=== PATIENT | female | born 1950 | race Caucasian/White ===

== ENCOUNTER 2017-05-22 13:08 | Inpatient (IN) | payer MEDICARE ==
[2017-05-22] MEDS ORDERED: IPRATROPIUM/ALBUTEROL 0.5-2.5 MG/3 ML AMPUL NEB ONE (14:41)
[2017-05-22] MEDS ORDERED: NORMAL SALINE 1000 ML 1,000 ML IV ONE (14:43)
[2017-05-22 15:41] LABS: HEMATOCRIT 46.7 % (36.0-47.0); HEMOGLOBIN 15.6 g/dL (12.0-15.5); MEAN CORPUSCULAR HEMOGLOBIN 30.3 pg (27.0-33.4); MEAN CORPUSCULAR HGB CONC 33.3 g/dL (32.0-36.0); MEAN CORPUSCULAR VOLUME 91 fl (80-97); PLATELET COUNT 192 10^3/uL (150-450); RED BLOOD COUNT 5.13 10^6/uL (3.72-5.28); RED CELL DISTRIBUTION WIDTH 14.6 % (11.5-14.0); WHITE BLOOD COUNT 11.9 10^3/uL (4.0-10.5)
[2017-05-22 15:59] LABS: ABSOLUTE LYMPHOCYTES# (MANUAL) 0.6 10^3/uL (0.5-4.7); ABSOLUTE MONOCYTES # (MANUAL) 0.5 10^3/uL (0.1-1.4); ABSOLUTE NEUTROPHILS# (MANUAL) 10.8 10^3/uL (1.7-8.2); BAND NEUTROPHILS % (MANUAL) 1 % (3-5); BASOPHILS % (MANUAL) 0 % (0-2); EOSINOPHILS % (MANUAL) 0 % (0-6); LYMPHOCYTES % (MANUAL) 5 % (13-45); MONOCYTES % (MANUAL) 4 % (3-13); SEGMENTED NEUTROPHILS % (MAN) 90 % (42-78); TOTAL CELLS COUNTED 100
[2017-05-22 16:02] LABS: ALANINE AMINOTRANSFERASE 20 U/L (9-52); ALBUMIN 4.5 g/dL (3.5-5.0); ALKALINE PHOSPHATASE 104 U/L (38-126); ANION GAP 10 (5-19); ASPARTATE AMINO TRANSFERASE 20 U/L (14-36); BILIRUBIN,DIRECT 0.5 mg/dL (0.0-0.4); BILIRUBIN,TOTAL 0.6 mg/dL (0.2-1.3); BLOOD UREA NITROGEN 5 mg/dL (7-20); CALCIUM 9.6 mg/dL (8.4-10.2); CARBON DIOXIDE 34 mmol/L (22-30); CHLORIDE 98 mmol/L (98-107); GLUCOSE 128 mg/dL (75-110); POTASSIUM 3.9 mmol/L (3.6-5.0); SODIUM 142.3 mmol/L (137-145); TOTAL PROTEIN 8.2 g/dL (6.3-8.2)
[2017-05-22 16:10] LABS: ANISOCYTOSIS SLIGHT; OVALOCYTES SLIGHT; PLATELET COMMENT ADEQUATE; POIKILOCYTOSIS SLIGHT
--- NOTE | 2017-05-22 16:20 | RADIOLOGY REPORT (SQ) ---
EXAM DESCRIPTION: CHEST PA/LAT COMPLETED DATE/TIME: 05/22/2017 4:02 pm REASON FOR STUDY: cough/sob COMPARISON: 12/16/2013 EXAM PARAMETERS: NUMBER OF VIEWS: two views TECHNIQUE: Digital Frontal and Lateral radiographic views of the chest acquired. RADIATION DOSE: NA LIMITATIONS: none FINDINGS: LUNGS AND PLEURA: No opacities, masses or pneumothorax. No pleural effusion. MEDIASTINUM AND HILAR STRUCTURES: No masses or contour abnormalities. HEART AND VASCULAR STRUCTURES: Heart normal size. No evidence for failure. BONES: No acute findings. Osteopenia. Moderate thoracic spondylosis. HARDWARE: None in the chest. OTHER: Mild chronic elevation left hemidiaphragm. IMPRESSION: NO ACUTE RADIOGRAPHIC FINDING IN THE CHEST. TECHNICAL DOCUMENTATION: JOB ID: [id number] [employer]- All Rights Reserved
[2017-05-22 17:05] LABS: A TYPE INFLUENZA AG NEGATIVE (NEGATIVE); B INFLUENZA AG NEGATIVE (NEGATIVE)
--- NOTE | 2017-05-22 18:49 | ER Document Report ---
ED General - General Mode of Arrival: Ambulatory Information source: Patient TRAVEL OUTSIDE OF THE [place] IN LAST 30 DAYS: No <JEREMIAH TAPIA - Last Filed: 05/23/17 00:18> <DOMO TIAN - Last Filed: 05/23/17 03:46> - General Chief Complaint: Flu Symptoms Stated Complaint: BREATING DIFFICULTY Time Seen by Provider: 05/22/17 14:40 Notes: Patient is a 67 year old female presenting to the emergency department complaining of flu like symptoms onset 3 days ago. Patients associated symptoms include nausea, vomiting, fatigue and a productive cough. Patient denies any diarrhea or chest pain. Patient states she has been around her granddaughter who was recently diagnosed with the flu. (JEREMIAH TAPIA) - Related Data Allergies/Adverse Reactions: Sulfa (Sulfonamide Antibiotics) Allergy (Verified 05/22/17 13:15) Itching Past Medical History - General Information source: Patient - Social History Smoking Status: Current Every Day Smoker Cigarette use (# per day): Yes Chew tobacco use (# tins/day): No Smoking Education Provided: No Family History: Reviewed & Not Pertinent Patient has suicidal ideation: No Patient has homicidal ideation: No - Past Medical History Cardiac Medical History: Reports: Hx Hypercholesterolemia, Hx Hypertension Pulmonary Medical History: Reports: Hx Bronchitis GI Medical History: Reports: Hx Gastroesophageal Reflux Disease Musculoskeltal Medical History: Reports Hx Arthritis, Reports Hx Fibromyalgia - 5 the Psychiatric Medical History: Reports: Hx Anxiety, Hx Depression Past Surgical History: Reports: Hx Hysterectomy - Immunizations Hx Diphtheria, Pertussis, Tetanus Vaccination: Yes <JEREMIAH TAPIA - Last Filed: 05/23/17 00:18> Review of Systems - Review of Systems Constitutional: See HPI - fatigue EENT: No symptoms reported Cardiovascular: See HPI, Chest pain - when she coughs Respiratory: See HPI, Cough Gastrointestinal: See HPI, Nausea, Vomiting Female Genitourinary: No symptoms reported Musculoskeletal: No symptoms reported Skin: No symptoms reported Hematologic/Lymphatic: No symptoms reported Neurological/Psychological: No symptoms reported -: Yes All other systems reviewed and negative <JEREMIAH TAPIA - Last Filed: 05/23/17 00:18> Physical Exam <JEREMIAH TAPIA - Last Filed: 05/23/17 00:18> <LONG,DOMO H - Last Filed: 05/23/17 03:46> - Vital signs Vitals: Temp Pulse Resp BP Pulse Ox 98.7 F 123 H 24 H 167/89 H 88 L 05/22/17 13:29 05/22/17 13:29 05/22/17 13:29 05/22/17 13:29 05/22/17 13:29 - Notes Notes: GENERAL: Alert, interacts well. No acute distress. HEAD: Normocephalic, atraumatic. EYES: Pupils equal, round, and reactive to light. Extraocular movements intact. ENT: Oral mucosa moist, tongue midline. NECK: Full range of motion. Supple. Trachea midline. LUNGS: Crackles at left lung base. No respiratory distress. HEART: Regular rate and rhythm. No murmurs, gallops, or rubs. EXTREMITIES: Moves all 4 extremities spontaneously. NEUROLOGICAL: Alert and oriented x3. Normal speech. PSYCH: Normal affect, normal mood. SKIN: Warm, dry, normal turgor. No rashes or lesions noted. (JEREMIAH TAPIA) Course - Laboratory Result Diagrams: 05/22/17 15:20 05/22/17 15:20 <JEREMIAH TAPIA - Last Filed: 05/23/17 00:18> - Laboratory Result Diagrams: 05/22/17 15:20 05/22/17 15:20 - Diagnostic Test Radiology reviewed: Image reviewed - EKG Interpretation by Ct EKG shows normal: Sinus rhythm Rate: Tachycardia Rhythm: NSR When compared to previous EKG there are: No significant change <DOMO TIAN - Last Filed: 05/23/17 03:46> - Re-evaluation Re-evalutation: 05/22/17 19:10 Patient well-appearing on exam with chest x-ray showing no effusions or consolidations. Labs within normal limits are nonsignificant. Patient is a smoker and had some mild crackles in left lung base. Will provide hour-long DuoNeb nebulizer and reevaluate. Due to crackles will provide 5 days of Levaquin and discharge after nebulizer treatment EKG no significant changes from previous. Influenza negative. Will also provide Zofran for nausea and Advil Cold and Sinus for aches and pains. She will be provided return precautions 05/22/17 20:22 Patient found to have magnesium 1.1 will provide 2 g. Patient is taking Nexium I discussed with her need to be weaned off and discuss with her primary care physician recommended Zantac. QTC within normal limits. Patient responding well to albuterol treatment. Will provide 5 days of Levaquin steroids and albuterol puffer. Return precautions provided (DOMO TIAN) - Vital Signs Vital signs: Temp Pulse Resp BP Pulse Ox 101.9 F H 102 H 20 139/58 H 92 05/23/17 01:33 05/23/17 02:24 05/23/17 02:24 05/23/17 01:33 05/23/17 02:24 - Laboratory Laboratory results interpreted by me: 05/22/17 05/22/17 05/22/17 15:20 15:20 15:20 WBC 11.9 H Hgb 15.6 H RDW 14.6 H Seg Neuts % (Manual) 90 H Band Neutrophils % 1 L Lymphocytes % (Manual) 5 L Abs Neuts (Manual) 10.8 H Carbon Dioxide 34 H BUN 5 L Glucose 128 H Magnesium 1.1 L* Direct Bilirubin 0.5 H Discharge - Discharge Admitting Provider: Hospitalist - Law <JEREMIAH TAPIA - Last Filed: 05/23/17 00:18> <DOMO TIAN - Last Filed: 05/23/17 03:46> - Discharge Clinical Impression: Upper respiratory infection Qualifiers: URI type: unspecified URI Qualified Code(s): J06.9 - Acute upper respiratory infection, unspecified Condition: Stable Disposition: ADMITTED INPATIENT Scribe Attestation: 05/23/17 03:46 I personally performed the services described documentation, reviewed and edited the documentation which was dictated to describe my presence, and it accurately records my words and actions. (DOMO TIAN) Scribe Documentation - Scribe Written by Vicki:: Vicki Estrella, 05/22/2017 18:49 acting as scribe for :: Vincent <JEREMIAH TAPIA - Last Filed: 05/23/17 00:18>
[2017-05-22] MEDS ORDERED: KETOROLAC TROMETHAMINE INJ/PF 30 MG/1 ML SDV IV ONE (18:50)
[2017-05-22] MEDS ORDERED: ALBUTEROL SULFATE 0.083% NEB 2.5 MG/3 ML AMPUL NEB ONE (19:09)
[2017-05-22] MEDS ORDERED: IPRATROPIUM BROMIDE 0.02% NEB 0.5 MG/2.5 ML AMPUL NEB ONE (19:09)
[2017-05-22 19:13] LABS: NT PRO BNP 377 pg/mL (5-900)
[2017-05-22 19:14] LABS: TROPONIN I < 0.012 ng/mL
[2017-05-22] MEDS ORDERED: ALBUTEROL SULFATE HFA (90 MCG/PUFF) 200 PUFF/8.5 GM MDI IH ONE (20:26)
[2017-05-22] MEDS: MAGNESIUM SULFATE/D5W 1 GM/100 ML RTUPB IV SCH ×2 (20:28→21:55)
[2017-05-22] MEDS ORDERED: MAGNESIUM SULFATE/D5W 1 GM/100 ML RTUPB IV SCH (23:45)
[2017-05-23] MEDS ORDERED: ACETAMINOPHEN 325 MG TABLET PO PRN (00:27)
[2017-05-23] MEDS ORDERED: NICOTINE 21 MG/24 HR PATCH.TD24 TD ONE (01:30)
[2017-05-23] MEDS ORDERED: INFLUENZA ADLT QUAD (36MOS+) 2017-18 VAC 0.5 ML SYR IM PRN (01:50)
[2017-05-23] MEDS: IPRATROPIUM/ALBUTEROL 0.5-2.5 MG/3 ML AMPUL NEB PRN ×2 (02:25→21:06)
--- NOTE | 2017-05-23 03:43 | PDOC H&P ---
History of Present Illness Patient complains of: Intermittent fever and worsening shortness of breath for the last 2 days. History of Present Illness: LULA HOLLAND is a 67 year old female smoker with history of acute bronchitis, hypertension and most likely COPD (although undiagnosed) was admitted with above -mentioned complaints. The patient is sleepy but arousable. she is complaining of pleuritic chest pain and productive cough but unable to bring up the phlegm. She also has been having intermittent fevers and chills. Her granddaughter apparently was diagnosed with flu (although she never tested positive per patient). She said that she used her nebulizer twice yesterday with no improvement in her symptoms so she decided to come to the hospital for further management and treatment. She denied any abdominal pain, nausea vomiting, diarrhea, constipation or any urinary symptoms. She complained of generalized weakness. In the ED, her temperature was 98.7, heart rate 123, respiratory 24, blood pressure 167/89 with oxygen saturation of 88% on room air. Her WBC was 11.9 and her hemoglobin was 15.6. Her initial troponin was negative and her proBNP was 377. Her magnesium was 1.1. A chest x-ray was done which was essentially unremarkable for any acute findings. She received 10 mg of albuterol neb x1, 0.5 mg Atrovent 1, DuoNeb 1 with no significant improvement in her breathing. Past Medical History Cardiac Medical History: Reports: Hyperlipidema, Hypertension Denies: Myocardial Infarction Pulmonary Medical History: Reports: Bronchitis Denies: Asthma, Pneumonia Neurological Medical History: Denies: Seizures GI Medical History: Reports: Gastroesophageal Reflux Disease Musculoskeltal Medical History: Reports: Arthritis, Fibromyalgia - 5 the Psychiatric Medical History: Reports: Depression Hematology: Denies: Anemia Past Surgical History Past Surgical History: Reports: Hysterectomy, Tonsillectomy Social History Smoking Status: Current Every Day Smoker Cigarettes Packs Per Day: 1.5 - For more than 20 Frequency of Alcohol Use: None Family History Parental Family History Reviewed: Yes - Father: CAD, mother: CAD/DM2 Children Family History Reviewed: No Sibling(s) Family History Reviewed.: Yes Medication/Allergy Home Medications: Alprazolam [Xanax] 1 mg PO QHS 05/21/13 Potassium Chloride [Klor-Con] 20 meq PO BID 05/21/13 Pravastatin Sodium [Pravachol] 80 mg PO QHS 05/21/13 Propranolol HCl [Inderal 20 mg Tablet] 20 mg PO BID 05/21/13 Ranitidine HCl [Zantac 150 mg Tablet] 150 mg PO DAILY 05/21/13 Benzonatate [Tessalon Perles 100 mg Capsule] 100 mg PO Q8HP PRN #40 capsule Albuterol Sulfate [Proair HFA Inhalation Aerosol 8.5 gm MDI] 2 puff IH PRN PRN 01/11/17 Fluticasone Propionate [Flonase Nasal Clyde 50 Mcg/Clyde 16 gm] 2 spray NASL PRN PRN 01/11/17 Levofloxacin [Levaquin 750 mg Tablet] 750 mg PO DAILY #5 tablet 05/22/17 Prednisone [Deltasone 20 mg Tablet] 2 tab PO DAILY 5 Days #10 tablet 05/22/17 Allergies/Adverse Reactions: Sulfa (Sulfonamide Antibiotics) Allergy (Verified 05/22/17 13:15) Itching Review of Systems Constitutional: PRESENT: as per HPI Eyes: PRESENT: as per HPI Ears: PRESENT: as per HPI Nose, Mouth, and Throat: PRESENT: as per HPI Cardiovascular: PRESENT: as per HPI Respiratory: PRESENT: as per HPI Gastrointestinal: PRESENT: as per HPI Genitourinary: PRESENT: as per HPI Musculoskeletal: PRESENT: as per HPI Integumentary: PRESENT: as per HPI Neurological: PRESENT: as per HPI Psychiatric: PRESENT: as per HPI Endocrine: PRESENT: as per HPI Hematologic/Lymphatic: PRESENT: as per HPI Physical Exam Vital Signs: Temp Pulse Resp BP Pulse Ox 98.7 F 123 H 22 H 132/63 H 92 05/22/17 13:29 05/22/17 13:29 05/22/17 22:51 05/22/17 22:01 05/22/17 22:51 Intake & Output 05/21/17 05/22/17 05/23/17 06:59 06:59 06:59 Weight 72.8 kg General appearance: PRESENT: no acute distress - on 2L nasal cannula, well- developed Head exam: PRESENT: atraumatic, normocephalic Eye exam: PRESENT: conjunctiva pink, PERRLA Mouth exam: PRESENT: moist Neck exam: PRESENT: carotid bruit. ABSENT: JVD Respiratory exam: PRESENT: decreased breath sounds, wheezes. ABSENT: rales, rhonchi Cardiovascular exam: PRESENT: tachycardia. ABSENT: diastolic murmur, systolic murmur GI/Abdominal exam: PRESENT: normal bowel sounds, soft. ABSENT: distended, rebound, tenderness Rectal exam: PRESENT: deferred Extremities exam: PRESENT: full ROM. ABSENT: pedal edema Neurological exam: PRESENT: motor sensory deficit, other - Sleepy but arousable Skin exam: PRESENT: dry, intact, warm. ABSENT: cyanosis, rash Results Laboratory Results: 05/22/17 15:20 05/22/17 15:20 05/22/17 05/22/17 05/22/17 15:20 15:20 15:20 WBC 11.9 H RBC 5.13 Hgb 15.6 H Hct 46.7 MCV 91 MCH 30.3 MCHC 33.3 RDW 14.6 H Plt Count 192 Seg Neutrophils % Not Reportable Lymphocytes % Not Reportable Monocytes % Not Reportable Eosinophils % Not Reportable Basophils % Not Reportable Absolute Neutrophils Not Reportable Absolute Lymphocytes Not Reportable Absolute Monocytes Not Reportable Absolute Eosinophils Not Reportable Absolute Basophils Not Reportable Sodium 142.3 Potassium 3.9 Chloride 98 Carbon Dioxide 34 H Anion Gap 10 BUN 5 L Creatinine 0.70 Est GFR ( Amer) > 60 Est GFR (Non-Af Amer) > 60 Glucose 128 H Calcium 9.6 Magnesium 1.1 L* Total Bilirubin 0.6 AST 20 ALT 20 Alkaline Phosphatase 104 Total Protein 8.2 Albumin 4.5 05/22/17 15:20 Troponin I < 0.012 NT-Pro-B Natriuret Pep 377 EKG Comments: Lead EKG, sinus rhythm, ventricular rate 105, axis +100, no acute changes. When compared to previous 12-lead EKG done on 12/16/2013 except ventricular rate was 90. Impressions: Chest X-Ray 05/22/17 14:41 IMPRESSION: NO ACUTE RADIOGRAPHIC FINDING IN THE CHEST. Assessment & Plan - Diagnosis (1) Acute and chronic respiratory failure with hypoxia Is this a current diagnosis for this admission?: Yes Plan: Given tachypnea and tachycardia with oxygen saturation down to 88% requiring 2 L of oxygen via nasal cannula. It could be due to acute bronchitis and/or COPD exacerbation. Chest x-ray was reviewed. We will continue scheduled duo nebs, IV Solu-Medrol and Levaquin. She mentioned that her granddaughter had the flu but she also said that she was never tested. Since she had these symptoms over 48 hours, I'm not sure if tamiflu is of benefit at this time. The patient would benefit from being referred to pulmonary for PFTs to be done once back to baseline (3) Sinus tachycardia Is this a current diagnosis for this admission?: Yes Plan: Secondary to #1. We will try to treat the underlying cause. Will restart her propranolol. (4) Hypomagnesemia Is this a current diagnosis for this admission?: Yes Plan: She received 2 g magnesium sulfate in the ED. We will repeat magnesium level in a.m and replace as needed. (5) Smoker Is this a current diagnosis for this admission?: Yes Plan: 1-1/2 pack a day for more than 20 years. She seems to be motivated to quit. She agreed to have a nicotine patch. - Time Time Spent: Greater than 70 Minutes Smoking Cessation Education: 3 to 10 minutes Anticipated discharge: Home - Inpatient Certification Based on my medical assessment, after consideration of the patient's comorbidities, presenting symptoms, or acuity I expect that the services needed warrant INPATIENT care.: Yes I certify that my determination is in accordance with my understanding of Medicare's requirements for reasonable and necessary INPATIENT services [42 CFR 412.3e].: Yes
[2017-05-23] MEDS: METHYLPREDNISOLONE INJ 40 MG/1 ML SDV IV SCH ×3 (05:39→22:01)
[2017-05-23] MEDS: HEPARIN SOD (PORCINE) 5,000 UNIT/ML 1 ML SYRINGE SUBCUT SCH ×3 (05:45→22:01)
[2017-05-23 06:11] LABS: HEMATOCRIT 38.4 % (36.0-47.0); MEAN CORPUSCULAR HEMOGLOBIN 30.8 pg (27.0-33.4); MEAN CORPUSCULAR VOLUME 91 fl (80-97); PLATELET COUNT 123 10^3/uL (150-450); RED BLOOD COUNT 4.23 10^6/uL (3.72-5.28); RED CELL DISTRIBUTION WIDTH 14.4 % (11.5-14.0); WHITE BLOOD COUNT 6.2 10^3/uL (4.0-10.5)
[2017-05-23 06:19] LABS: HEMOGLOBIN 13.1 g/dL (12.0-15.5)
[2017-05-23 06:30] LABS: ANION GAP 11 (5-19); BLOOD UREA NITROGEN 6 mg/dL (7-20); CALCIUM 8.8 mg/dL (8.4-10.2); CARBON DIOXIDE 29 mmol/L (22-30); CHLORIDE 100 mmol/L (98-107); GLUCOSE 97 mg/dL (75-110); POTASSIUM 3.2 mmol/L (3.6-5.0); SODIUM 140.1 mmol/L (137-145)
--- NOTE | 2017-05-23 07:57 | EKG REPORT ---
SEVERITY:- BORDERLINE ECG - SINUS TACHYCARDIA RIGHT AXIS DEVIATION DIFFUSE NONSPECIFIC ST CHANGES : Confirmed by: Scott Glass MD 23-May-2017 07:56:53
[2017-05-23] MEDS ORDERED: ALBUTEROL SULFATE 0.042% NEB (1.25 MG/3 ML) AMPUL NEB PRN (09:08)
--- NOTE | 2017-05-23 09:08 | PDOC PROGRESS REPORT ---
Subjective Progress Note for:: 05/23/17 Subjective:: 67-year-old female smoker with hypertension presented to the hospital with intermittent fever and worsening shortness of breath for 2 days. Her shortness of breath was associated with pleuritic chest pain and a productive cough. In the emergency department, her temperature was 98.7, heart rate 123, respiratory rate 24, and blood pressure 167/89. Her O2 saturation was 88% on room air. Her breath sounds were diminished, and she was wheezing on exam. Her chest x- ray showed no acute abnormalities. She was treated with albuterol neb x 1, Atrovent neb x 1, and DuoNeb once with no significant improvement in her breathing. She was admitted by the hospitalist. Oxygen was continued. She was continued on duo nebs every 6 hours. She was also started on methylprednisolone 40 mg IV every 8 hours. Empiric levofloxacin was also started. She is encouraged to quit smoking. Nicotine patch was ordered. May 23 She is feeling better this morning. She has less cough and shortness of breath. Reason For Visit: SHORTNESS OF BREATH Physical Exam Vital Signs: Temp Pulse Resp BP Pulse Ox 98.3 F 79 20 118/55 L 90 L 05/23/17 08:00 05/23/17 08:00 05/23/17 08:00 05/23/17 08:00 05/23/17 08:00 Intake & Output 05/22/17 05/23/17 05/24/17 06:59 06:59 06:59 Intake Total 227 Output Total 540 Balance -313 Weight 72.8 kg General appearance: PRESENT: no acute distress, well-developed, well-nourished Head exam: PRESENT: atraumatic, normocephalic Respiratory exam: PRESENT: decreased breath sounds, prolonged expiratory phas, unlabored, wheezes. ABSENT: accessory muscle use, tachypnea Cardiovascular exam: PRESENT: RRR. ABSENT: diastolic murmur, rubs, systolic murmur Neurological exam: PRESENT: alert, awake, oriented to person, oriented to place , oriented to time, oriented to situation, CN II-XII grossly intact. ABSENT: motor sensory deficit Psychiatric exam: PRESENT: appropriate affect, normal mood. ABSENT: homicidal ideation, suicidal ideation Skin exam: PRESENT: dry, intact, warm. ABSENT: cyanosis, rash Results Laboratory Results: 05/23/17 05:38 05/23/17 05:38 05/23/17 05/23/17 05:38 05:38 WBC 6.2 RBC 4.23 Hgb 13.1 D Hct 38.4 MCV 91 MCH 30.8 MCHC 34.0 RDW 14.4 H Plt Count 123 L Sodium 140.1 Potassium 3.2 L Chloride 100 Carbon Dioxide 29 Anion Gap 11 BUN 6 L Creatinine 0.60 Est GFR ( Amer) > 60 Est GFR (Non-Af Amer) > 60 Glucose 97 Calcium 8.8 Magnesium 1.8 Impressions: Chest X-Ray 05/22/17 14:41 IMPRESSION: NO ACUTE RADIOGRAPHIC FINDING IN THE CHEST. Assessment & Plan - Diagnosis (1) Acute bronchitis Qualifiers: Bronchitis organism: unspecified organism Qualified Code(s): J20.9 - Acute bronchitis, unspecified Is this a current diagnosis for this admission?: Yes Plan: She most likely has COPD based on her symptoms as well as history of smoking. She would benefit from pulmonary function studies prior to discharge or as an outpatient if she, discharges over the weekend. (2) Hypertension Qualifiers: Hypertension type: essential hypertension Qualified Code(s): I10 - Essential (primary) hypertension Is this a current diagnosis for this admission?: Yes Plan: Blood pressures well controlled. (3) Smoker Is this a current diagnosis for this admission?: Yes Plan: She was encouraged to quit smoking. Nicotine patch has been ordered. (4) Hypokalemia Is this a current diagnosis for this admission?: Yes Plan: Replace as needed. Also supplement magnesium as well. - Time Time Spent with patient: 25-34 minutes Medications reviewed and adjusted accordingly: Yes Anticipated discharge: Home - Inpatient Certification Based on my medical assessment, after consideration of the patient's comorbidities, presenting symptoms, or acuity I expect that the services needed warrant INPATIENT care.: Yes I certify that my determination is in accordance with my understanding of Medicare's requirements for reasonable and necessary INPATIENT services [42 CFR 412.3e].: Yes Medical Necessity: Failure to Improve With Outpatient Therapy, Significant Comorbidiites Make Outpatient Treatment Too Risky, Need for Nebulizer Therapy and Monitoring of Response
[2017-05-23] MEDS: PROPRANOLOL HCL 20 MG TABLET PO SCH ×2 (09:58→17:51)
[2017-05-23] MEDS: LEVOFLOXACIN 500 MG TABLET PO SCH (09:59)
[2017-05-23] MEDS: NICOTINE 21 MG/24 HR PATCH.TD24 TD SCH (09:59)
[2017-05-23] MEDS: MAGNESIUM OXIDE 400 MG TABLET PO SCH ×2 (10:24→17:51)
[2017-05-23] MEDS: POTASSIUM CHLORIDE 10 MEQ TABLET.SA PO SCH ×3 (10:24→17:51)
[2017-05-24] MEDS: LOPERAMIDE HCL 2 MG CAPSULE PO PRN ×2 (03:33→15:59)
[2017-05-24] MEDS: METHYLPREDNISOLONE INJ 40 MG/1 ML SDV IV SCH (05:24)
[2017-05-24] MEDS: HEPARIN SOD (PORCINE) 5,000 UNIT/ML 1 ML SYRINGE SUBCUT SCH ×3 (05:24→22:29)
[2017-05-24 06:31] LABS: ANION GAP 8 (5-19); BLOOD UREA NITROGEN 10 mg/dL (7-20); CARBON DIOXIDE 31 mmol/L (22-30); CHLORIDE 99 mmol/L (98-107); GLUCOSE 184 mg/dL (75-110); SODIUM 138.2 mmol/L (137-145)
[2017-05-24] MEDS: NICOTINE 21 MG/24 HR PATCH.TD24 TD SCH (10:29)
[2017-05-24] MEDS: MAGNESIUM OXIDE 400 MG TABLET PO SCH ×2 (10:32→17:27)
[2017-05-24] MEDS: LEVOFLOXACIN 500 MG TABLET PO SCH (10:32)
[2017-05-24] MEDS: PROPRANOLOL HCL 20 MG TABLET PO SCH ×2 (10:32→17:27)
[2017-05-24] MEDS: IPRATROPIUM/ALBUTEROL 0.5-2.5 MG/3 ML AMPUL NEB PRN ×2 (10:52→16:10)
--- NOTE | 2017-05-24 11:47 | PDOC PROGRESS REPORT ---
Subjective Progress Note for:: 05/24/17 Subjective:: The patient is a 67-year-old female who is a long history of tobacco abuse. Her only known medical problem is hypertension. She told me that she generally gets severe bronchitis this time of year. She frequently has bronchitis but again has never been told that she has asthma, chronic bronchitis, COPD or emphysema. She has never had pulmonary function testing done. She presented to the hospital with a saturation of 88% on room air. She was tachycardic. She has a normal-appearing chest x-ray. She is currently receiving antibiotics , steroids and bronchodilators and is improving. Pulmonary function testing has been scheduled for today. Reason For Visit: SHORTNESS OF BREATH Physical Exam Vital Signs: Temp Pulse Resp BP Pulse Ox 98.2 F 65 20 121/59 L 90 L 05/24/17 08:00 05/24/17 08:00 05/24/17 08:00 05/24/17 08:00 05/24/17 08:00 Intake & Output 05/23/17 05/24/17 05/25/17 06:59 06:59 06:59 Intake Total 227 2646 Output Total 540 Balance -313 2646 Weight 72.8 kg 78.2 kg Additional comments: The patient appears to be her stated age. She is extremely polite. Her cognition is normal. Her facial appearance is unremarkable. Her lungs were clear anteriorly, but, she had a few scattered wheezes in the posterior lung field primarily throughout the right lung. Her cardiac exam is regular without murmurs, gallops or rubs. The abdomen is soft and flat. Bowel sounds are present. She does not have any guarding or rebound noted and there are no hernias or masses present. The lower extremities are warm to touch without edema. The skin is warm, dry and intact without lesions or rashes. Results Laboratory Results: 05/23/17 05:38 05/24/17 05:55 05/24/17 05:55 Sodium 138.2 Potassium 5.0 Chloride 99 Carbon Dioxide 31 H Anion Gap 8 BUN 10 Creatinine 0.57 Est GFR ( Amer) > 60 Est GFR (Non-Af Amer) > 60 Glucose 184 H Calcium 10.0 Impressions: Chest X-Ray 05/22/17 14:41 IMPRESSION: NO ACUTE RADIOGRAPHIC FINDING IN THE CHEST. Assessment & Plan - Diagnosis (1) Acute respiratory failure with hypoxia Is this a current diagnosis for this admission?: Yes Plan: Continue supplemental oxygen. The patient states that for a long time she has been feeling poorly. She has decreased physical strength and stamina. I suspect that the patient likely needs oxygen. She may need to be evaluated for chronic oxygen use before discharge. (2) Acute bronchitis Qualifiers: Bronchitis organism: unspecified organism Qualified Code(s): J20.9 - Acute bronchitis, unspecified Is this a current diagnosis for this admission?: Yes Plan: Continue antibiotics, steroids and bronchodilators. (3) Hypertension Qualifiers: Hypertension type: essential hypertension Qualified Code(s): I10 - Essential (primary) hypertension Is this a current diagnosis for this admission?: Yes Plan: Continue home regimen. (4) Smoker Is this a current diagnosis for this admission?: Yes Plan: Continue nicotine patch. Patient was counseled that the best way to quit smoking is to use a pharmacological adjunct plus a smoking cessation program. - Time Time Spent with patient: 25-34 minutes - Inpatient Certification Medical Necessity: Need Close Monitoring Due to Risk of Patient Decompensation, Need for IV Antibiotics, Risk of Complication if Not Cared For in Hospital, Risk of Diagnosis Which Will Require Inpatient Eval/Care/Monitoring
[2017-05-24] MEDS ORDERED: (PENDING PHARMACY ID) (Dextroamphetamine/Amphetamine [Adderall 20 Mg Tablet] 1 TAB) PO PRN (11:50)
[2017-05-24] MEDS: ALPRAZOLAM 0.5 MG TABLET PO SCH ×2 (15:59→22:29)
[2017-05-24] MEDS: PREDNISONE 20 MG TABLET PO SCH (17:27)
[2017-05-24] MEDS ORDERED: PROPRANOLOL HCL 20 MG TABLET PO SCH (22:00)
[2017-05-24] MEDS: ATORVASTATIN CALCIUM 20 MG TABLET PO SCH (22:29)
[2017-05-25] MEDS: ALPRAZOLAM 0.5 MG TABLET PO SCH ×3 (05:37→21:38)
[2017-05-25] MEDS: HEPARIN SOD (PORCINE) 5,000 UNIT/ML 1 ML SYRINGE SUBCUT SCH ×3 (05:37→21:36)
[2017-05-25 07:38] LABS: ANION GAP 7 (5-19); BLOOD UREA NITROGEN 13 mg/dL (7-20); CALCIUM 9.8 mg/dL (8.4-10.2); CARBON DIOXIDE 33 mmol/L (22-30); CHLORIDE 97 mmol/L (98-107); GLUCOSE 126 mg/dL (75-110); POTASSIUM 4.4 mmol/L (3.6-5.0); SODIUM 137.4 mmol/L (137-145)
[2017-05-25] MEDS: PROPRANOLOL HCL 20 MG TABLET PO SCH ×2 (09:42→17:52)
[2017-05-25] MEDS: MAGNESIUM OXIDE 400 MG TABLET PO SCH ×2 (09:42→17:52)
[2017-05-25] MEDS: LEVOFLOXACIN 500 MG TABLET PO SCH (09:42)
[2017-05-25] MEDS: NICOTINE 21 MG/24 HR PATCH.TD24 TD SCH (09:42)
[2017-05-25] MEDS: PREDNISONE 20 MG TABLET PO SCH ×2 (09:42→17:52)
[2017-05-25] MEDS: IPRATROPIUM/ALBUTEROL 0.5-2.5 MG/3 ML AMPUL NEB PRN (11:12)
--- NOTE | 2017-05-25 15:30 | PDOC PROGRESS REPORT ---
Subjective Progress Note for:: 05/25/17 Subjective:: The patient is a 67-year-old female who is a long history of tobacco abuse. Her only known medical problem is hypertension. She told me that she generally gets severe bronchitis this time of year. She frequently has bronchitis but again has never been told that she has asthma, chronic bronchitis, COPD or emphysema. She has never had pulmonary function testing done. She presented to the hospital with a saturation of 88% on room air. She was tachycardic. She has a normal-appearing chest x-ray. She is currently receiving antibiotics , steroids and bronchodilators and is improving. Pulmonary function testing was performed yesterday. A severe impairment, which appears to be restrictive is present. Reason For Visit: SHORTNESS OF BREATH Physical Exam Vital Signs: Temp Pulse Resp BP Pulse Ox 98.4 F 58 L 16 126/72 H 100 05/25/17 12:00 05/25/17 14:00 05/25/17 12:00 05/25/17 12:00 05/25/17 12:00 Intake & Output 05/24/17 05/25/17 05/26/17 06:59 06:59 06:59 Intake Total 2646 1555 Balance 2646 1555 Weight 78.2 kg 78.5 kg Additional comments: The patient appears to be a middle-aged female. She is not in any distress while resting on oxygen in bed. Her facial appearance is unremarkable. Today, her lungs do show scattered rails. These are not Velcro like. Her cardiac exam is regular without murmurs, gallops or rubs. The abdomen is soft and flat. Bowel sounds are present in the lower quadrants. She does not have guarding or rebound present and there are no hernias or masses present. The lower extremities are unremarkable. No edema is present. The skin is clean, warm, dry and intact. Results Laboratory Results: 05/23/17 05:38 05/25/17 06:47 05/25/17 05/25/17 04:44 06:47 Sodium Cancelled 137.4 Potassium Cancelled 4.4 Chloride Cancelled 97 L Carbon Dioxide Cancelled 33 H Anion Gap Cancelled 7 BUN Cancelled 13 Creatinine Cancelled 0.59 Est GFR ( Amer) Cancelled > 60 Est GFR (Non-Af Amer) Cancelled > 60 Glucose Cancelled 126 H Calcium Cancelled 9.8 Magnesium Cancelled 1.9 Impressions: Chest X-Ray 05/22/17 14:41 IMPRESSION: NO ACUTE RADIOGRAPHIC FINDING IN THE CHEST. Assessment & Plan - Diagnosis (1) Acute respiratory failure with hypoxia Is this a current diagnosis for this admission?: Yes Plan: Continue supplemental oxygen. The patient states that for a long time she has been feeling poorly. She has decreased physical strength and stamina. I suspect that the patient likely needs oxygen. She may need to be evaluated for chronic oxygen use before discharge. Will try to qualify her. Further testing for her severe restrictive defect as needed. I will order a CT thorax high resolution protocol. (2) Acute bronchitis Qualifiers: Bronchitis organism: unspecified organism Qualified Code(s): J20.9 - Acute bronchitis, unspecified Is this a current diagnosis for this admission?: Yes Plan: Continue antibiotics, steroids and bronchodilators. (3) Hypertension Qualifiers: Hypertension type: essential hypertension Qualified Code(s): I10 - Essential (primary) hypertension Is this a current diagnosis for this admission?: Yes Plan: Continue home regimen. (4) Smoker Is this a current diagnosis for this admission?: Yes Plan: Continue nicotine patch. Patient was counseled that the best way to quit smoking is to use a pharmacological adjunct plus a smoking cessation program. - Time Time Spent with patient: 15-24 minutes - Inpatient Certification Medical Necessity: Risk of Complication if Not Cared For in Hospital, Risk of Diagnosis Which Will Require Inpatient Eval/Care/Monitoring
[2017-05-25] MEDS: ATORVASTATIN CALCIUM 20 MG TABLET PO SCH (21:38)
[2017-05-25] MEDS: LOPERAMIDE HCL 2 MG CAPSULE PO PRN (22:41)
[2017-05-26] MEDS: HEPARIN SOD (PORCINE) 5,000 UNIT/ML 1 ML SYRINGE SUBCUT SCH ×3 (06:18→21:49)
[2017-05-26] MEDS: ALPRAZOLAM 0.5 MG TABLET PO SCH ×3 (06:21→21:49)
[2017-05-26 06:51] LABS: ABSOLUTE LYMPHOCYTES (AUTO) 1.1 10^3/uL (0.5-4.7); ABSOLUTE MONOCYTES (AUTO) 0.6 10^3/uL (0.1-1.4); ABSOLUTE NEUT (AUTO) 5.5 10^3/uL (1.7-8.2); BASOPHILS % (AUTO) 0.1 % (0-2); HEMATOCRIT 39.9 % (36.0-47.0); HEMOGLOBIN 13.6 g/dL (12.0-15.5); LYMPHOCYTES % (AUTO) 14.9 % (13-45); MEAN CORPUSCULAR HEMOGLOBIN 30.7 pg (27.0-33.4); MEAN CORPUSCULAR HGB CONC 34.1 g/dL (32.0-36.0); MEAN CORPUSCULAR VOLUME 90 fl (80-97); MONOCYTES % (AUTO) 7.8 % (3-13); PLATELET COUNT 162 10^3/uL (150-450); RED BLOOD COUNT 4.43 10^6/uL (3.72-5.28); RED CELL DISTRIBUTION WIDTH 14.3 % (11.5-14.0); SEGMENTED NEUTROPHILS % (AUTO) 77.2 % (42-78); TOTAL CELLS COUNTED % (AUTO) 100 %; WHITE BLOOD COUNT 7.1 10^3/uL (4.0-10.5)
[2017-05-26 07:08] LABS: ANION GAP 9 (5-19); BLOOD UREA NITROGEN 15 mg/dL (7-20); CALCIUM 9.5 mg/dL (8.4-10.2); CARBON DIOXIDE 34 mmol/L (22-30); CHLORIDE 94 mmol/L (98-107); GLUCOSE 99 mg/dL (75-110); POTASSIUM 4.1 mmol/L (3.6-5.0); SODIUM 137.2 mmol/L (137-145)
[2017-05-26] MEDS: PREDNISONE 20 MG TABLET PO SCH ×2 (09:10→16:59)
[2017-05-26] MEDS: NICOTINE 21 MG/24 HR PATCH.TD24 TD SCH (09:10)
[2017-05-26] MEDS: LEVOFLOXACIN 500 MG TABLET PO SCH (09:10)
[2017-05-26] MEDS: PROPRANOLOL HCL 20 MG TABLET PO SCH ×2 (09:10→16:59)
[2017-05-26] MEDS: IPRATROPIUM/ALBUTEROL 0.5-2.5 MG/3 ML AMPUL NEB PRN (12:10)
--- NOTE | 2017-05-26 15:28 | PDOC PROGRESS REPORT ---
Subjective Progress Note for:: 05/26/17 Subjective:: The patient is a 67-year-old female who is a long history of tobacco abuse. Her only known medical problem is hypertension. She told me that she generally gets severe bronchitis this time of year. She frequently has bronchitis but again has never been told that she has asthma, chronic bronchitis, COPD or emphysema. She has never had pulmonary function testing done. She presented to the hospital with a saturation of 88% on room air. She was tachycardic. She has a normal-appearing chest x-ray. She is currently receiving antibiotics , steroids and bronchodilators and is improving. Pulmonary function testing was performed yesterday. A severe impairment, which appears to be restrictive is present. I have been preparing the patient for discharge. However, I have just been informed that the patient does not have insurance. Therefore, we will have to hold her discharge until we can arrange for her to get home oxygen. Reason For Visit: SHORTNESS OF BREATH Physical Exam Vital Signs: Temp Pulse Resp BP Pulse Ox 98.2 F 56 L 16 127/66 H 93 05/26/17 11:47 05/26/17 14:00 05/26/17 12:10 05/26/17 11:47 05/26/17 11:47 Intake & Output 05/25/17 05/26/17 05/27/17 06:59 06:59 06:59 Intake Total 1555 1460 930 Balance 1555 1460 930 Weight 78.5 kg 72.6 kg Additional comments: The patient appears to be her stated age. She was resting comfortably in bed this morning on 3 L of oxygen. She states that she is feeling better. Her facial appearance is unremarkable. Today, I did hear Velcro rales in the posterior lung torres left greater than right. Her cardiac exam is regular without murmurs, gallops or rubs. The abdomen is soft, flat and benign. Bowel sounds are present in the lower quadrants. The lower extremities are warm to touch without edema. The skin is clean, warm, dry and intact without lesions or rashes. Results Laboratory Results: 05/26/17 06:20 05/26/17 06:20 05/26/17 05/26/17 06:20 06:20 WBC 7.1 RBC 4.43 Hgb 13.6 Hct 39.9 MCV 90 MCH 30.7 MCHC 34.1 RDW 14.3 H Plt Count 162 Seg Neutrophils % 77.2 Lymphocytes % 14.9 Monocytes % 7.8 Eosinophils % 0.0 Basophils % 0.1 Absolute Neutrophils 5.5 Absolute Lymphocytes 1.1 Absolute Monocytes 0.6 Absolute Eosinophils 0.0 Absolute Basophils 0.0 Sodium 137.2 Potassium 4.1 Chloride 94 L Carbon Dioxide 34 H Anion Gap 9 BUN 15 Creatinine 0.55 Est GFR ( Amer) > 60 Est GFR (Non-Af Amer) > 60 Glucose 99 Calcium 9.5 Magnesium 2.1 Impressions: Chest X-Ray 05/22/17 14:41 IMPRESSION: NO ACUTE RADIOGRAPHIC FINDING IN THE CHEST. Assessment & Plan - Diagnosis (1) Acute respiratory failure with hypoxia Is this a current diagnosis for this admission?: Yes Plan: Continue supplemental oxygen. The patient states that for a long time she has been feeling poorly. She has decreased physical strength and stamina. Based on her history I suspect that she has needed oxygen for quite some time. She has been qualified for oxygen during this admission. Unfortunately, she does not have health insurance. We are trying to get this arranged. (2) Acute bronchitis Qualifiers: Bronchitis organism: unspecified organism Qualified Code(s): J20.9 - Acute bronchitis, unspecified Is this a current diagnosis for this admission?: Yes Plan: Continue antibiotics, steroids and bronchodilators. (3) Hypertension Qualifiers: Hypertension type: essential hypertension Qualified Code(s): I10 - Essential (primary) hypertension Is this a current diagnosis for this admission?: Yes Plan: Continue home regimen. (4) Smoker Is this a current diagnosis for this admission?: Yes Plan: Continue nicotine patch. Patient was counseled that the best way to quit smoking is to use a pharmacological adjunct plus a smoking cessation program. (5) Restrictive lung disease Is this a current diagnosis for this admission?: Yes Plan: I have placed a pulmonary consultation. Patient will likely need full pulmonary function testing and possibly a high-resolution CT thorax. - Time Time Spent with patient: 15-24 minutes - Inpatient Certification Medical Necessity: Risk of Complication if Not Cared For in Hospital, Risk of Diagnosis Which Will Require Inpatient Eval/Care/Monitoring
[2017-05-26] MEDS: ATORVASTATIN CALCIUM 20 MG TABLET PO SCH (21:49)
[2017-05-27] MEDS: IPRATROPIUM/ALBUTEROL 0.5-2.5 MG/3 ML AMPUL NEB PRN ×2 (02:28→11:12)
[2017-05-27] MEDS: HEPARIN SOD (PORCINE) 5,000 UNIT/ML 1 ML SYRINGE SUBCUT SCH ×2 (05:32→16:08)
[2017-05-27] MEDS: ALPRAZOLAM 0.5 MG TABLET PO SCH ×2 (05:32→16:11)
[2017-05-27] MEDS: PREDNISONE 20 MG TABLET PO SCH (10:09)
[2017-05-27] MEDS: LEVOFLOXACIN 500 MG TABLET PO SCH (10:09)
[2017-05-27] MEDS: PROPRANOLOL HCL 20 MG TABLET PO SCH (10:09)
[2017-05-27] MEDS: NICOTINE 21 MG/24 HR PATCH.TD24 TD SCH (10:09)
--- NOTE | 2017-05-27 15:44 | PDOC CONSULTATION ---
Consultation Consult Date: 05/27/17 Attending physician:: STANISLAW WILKINS Consult reason:: Dyspnea History of Present Illness Admission Date/PCP: 05/22/17 23:28 History of Present Illness: LULA HOLLAND is a 67 year old female smoker with history of acute bronchitis, hypertension and most likely COPD (although undiagnosed) was admitted with above -mentioned complaints. The patient is sleepy but arousable. she is complaining of pleuritic chest pain and productive cough but unable to bring up the phlegm. She also has been having intermittent fevers and chills. Her granddaughter apparently was diagnosed with flu (although she never tested positive per patient). She said that she used her nebulizer twice yesterday with no improvement in her symptoms so she decided to come to the hospital for further management.She admits to ESTEVES with activities of daily living and has failed to 6 minute walk while during her hospitalization. She denies hemoptysis her PPD is negative dates unknown. She had no history of chronic lung disease as a child or adolescent. She admits to exposure large amounts of passive smoke as a child as well as an adult she herself smoked one half packs a day for 47 years and continues to smoke at this time. She is exposed large amounts of passive smoke working as a stone layer in a restaurant for 7 years. She has 2 dogs denies any recent travel. She has occasional tightness in the chest is with relieved with rest she sleeps on 2-3 pillows no PND no nocturnal cough and occasional edema. She admits to snoring restless sleep nocturia 2-3 times per night unrestful sleep and excessive daytime somnolence. Past Medical History Cardiac Medical History: Reports: Hyperlipidema, Hypertension Denies: Myocardial Infarction Pulmonary Medical History: Reports: Bronchitis Denies: Asthma, Chronic Obstructive Pulmonary Disease (COPD), Pneumonia Neurological Medical History: Denies: Seizures GI Medical History: Reports: Gastroesophageal Reflux Disease Musculoskeltal Medical History: Reports: Arthritis, Fibromyalgia - 5 the Psychiatric Medical History: Reports: Depression Hematology: Denies: Anemia Past Surgical History Past Surgical History: Reports: Hysterectomy, Tonsillectomy Social History Information Source: Patient, [facility] Records Smoking Status: Current Every Day Smoker Cigarettes Packs Per Day: 1.5 - For more than 20 Passive smoke exposure as: Both Frequency of Alcohol Use: None Hx Recreational Drug Use: No Hx Prescription Drug Abuse: No Do you have pets?: Yes Have you had any respiratory illnesses as a child?: No Have you been exposed to any sick contacts recently?: No Have you had any recent respiratory illnesses?: Yes Have you travelled outside of [place] in the past 12 months?: No Family History Family History: CVA, Hyperlipidemia, Hypertension Parental Family History Reviewed: Yes Children Family History Reviewed: Yes Sibling(s) Family History Reviewed.: Yes Medication/Allergy Home Medications: Alprazolam [Xanax] 1 mg PO TID 05/23/17 Dextroamphetamine/Amphetamine [Adderall 20 mg Tablet] 1 tab PO ASDIR PRN Pravastatin Sodium [Pravachol] 80 mg PO QHS 05/23/17 Propranolol HCl [Inderal 20 mg Tablet] 20 mg PO Q12 05/23/17 Vilazodone HCl [Viibryd] 20 mg PO DAILY 05/24/17 Allergies/Adverse Reactions: Sulfa (Sulfonamide Antibiotics) Allergy (Verified 05/22/17 13:15) Itching Review of Systems Constitutional: PRESENT: fatigue, weakness Eyes: ABSENT: visual disturbances Ears: ABSENT: hearing changes Nose, Mouth, and Throat: ABSENT: mouth pain, sore throat Cardiovascular: PRESENT: dyspnea on exertion. ABSENT: palpitations Respiratory: PRESENT: dyspnea. ABSENT: hemoptysis Gastrointestinal: PRESENT: dysphagia, heartburn. ABSENT: abdominal pain, bloating, coffee ground emesis, hematemesis, hematochezia, melena Genitourinary: PRESENT: nocturia. ABSENT: dysuria, hematuria Musculoskeletal: ABSENT: deformity, joint swelling Integumentary: ABSENT: pruritus, rash Neurological: ABSENT: abnormal movements, abnormal speech, confusion, focal weakness, frequent falls, lack of coordination, memory loss Endocrine: ABSENT: cold intolerance, heat intolerance, menstrual abnormalities, polydipsia, polyuria Hematologic/Lymphatic: PRESENT: easy bruising Physical Exam Vital Signs: Temp Pulse Resp BP Pulse Ox 98.1 F 51 L 16 120/58 L 94 05/27/17 11:30 05/27/17 14:00 05/27/17 11:30 05/27/17 11:30 05/27/17 11:30 Intake & Output 05/26/17 05/27/17 05/28/17 06:59 06:59 06:59 Intake Total 1460 1540 Balance 1460 1540 Weight 72.6 kg 77.2 kg General appearance: PRESENT: no acute distress, cooperative, disheveled, well- developed Head exam: PRESENT: atraumatic, normocephalic Eye exam: PRESENT: conjunctiva pale, EOMI. ABSENT: nystagmus, periorbital swelling, scleral icterus Mouth exam: PRESENT: dry mucosa, neck supple, tongue midline Teeth exam: PRESENT: poor dentation Neck exam: ABSENT: carotid bruit, JVD, lymphadenopathy, thyromegaly, tracheal deviation, tracheostomy Respiratory exam: PRESENT: decreased breath sounds, prolonged expiratory phas, rhonchi, symmetrical, unlabored, wheezes. ABSENT: crackles, rales, retraction, stridor, tachypnea Cardiovascular exam: PRESENT: RRR, +S1, +S2 Pulses: PRESENT: normal radial pulses GI/Abdominal exam: PRESENT: diminished bowel sounds, soft Extremities exam: PRESENT: full ROM. ABSENT: calf tenderness, clubbing, joint swelling Musculoskeletal exam: PRESENT: ambulatory, full ROM. ABSENT: deformity, dislocation Neurological exam: PRESENT: alert, awake Psychiatric exam: PRESENT: normal mood Skin exam: PRESENT: dry, warm Results Laboratory Results: 05/26/17 06:20 05/26/17 06:20 Impressions: Chest X-Ray 05/22/17 14:41 IMPRESSION: NO ACUTE RADIOGRAPHIC FINDING IN THE CHEST. Assessment & Plan - Diagnosis (1) Acute and chronic respiratory failure with hypoxia Is this a current diagnosis for this admission?: Yes Plan: Continue current bronchodilator therapy; patient failed 6 minute walk will need to go home on oxygen patient has a prior scheduled to the office and we will be happy to see her in follow-up (2) Smoker Is this a current diagnosis for this admission?: Yes
--- NOTE | 2017-05-27 16:09 | PDOC DISCHARGE SUMMARY ---
General - Admit/Disc Date/PCP Admission Date/Primary Care Provider: 05/22/17 23:28 Discharge Date: 05/27/17 - Discharge Diagnosis (1) Acute respiratory failure with hypoxia Is this a current diagnosis for this admission?: Yes (2) Acute bronchitis Is this a current diagnosis for this admission?: Yes (3) Hypertension Is this a current diagnosis for this admission?: Yes (4) Smoker Is this a current diagnosis for this admission?: Yes (5) Restrictive lung disease Is this a current diagnosis for this admission?: Yes - Additional Information Discharge Diet: Regular Discharge Activity: Balance Activity w/Rest, Slowly Increase Activity Prescriptions: Ipratropium/Albuterol Sulfate [Duoneb 3 ml Ampul] 3 ml NEB RTQ6 30 Days #120 vial.neb Levofloxacin [Levaquin 500 mg Tablet] 500 mg PO DAILY 5 Days #5 tablet Prednisone [Deltasone 20 mg Tablet] 20 mg PO DAILY 5 Days #5 tablet Home Medications: Alprazolam [Xanax] 1 mg PO TID 05/23/17 Dextroamphetamine/Amphetamine [Adderall 20 mg Tablet] 1 tab PO ASDIR PRN Pravastatin Sodium [Pravachol] 80 mg PO QHS 05/23/17 Propranolol HCl [Inderal 20 mg Tablet] 20 mg PO Q12 05/23/17 Vilazodone HCl [Viibryd] 20 mg PO DAILY 05/24/17 Ipratropium/Albuterol Sulfate [Duoneb 3 ml Ampul] 3 ml NEB RTQ6 30 Days #120 vial.neb 05/27/17 Levofloxacin [Levaquin 500 mg Tablet] 500 mg PO DAILY 5 Days #5 tablet 05/27/17 Nicotine [Nicoderm 21 mg/24 Hr Transderm Patch] 1 each TD DAILY patch.td24 Prednisone [Deltasone 20 mg Tablet] 20 mg PO DAILY 5 Days #5 tablet 05/27/17 History of Present Illness History of Present Illness: LULA HOLLAND is a 67 year old female smoker with history of acute bronchitis, hypertension and most likely COPD (although undiagnosed) was admitted with above -mentioned complaints. The patient is sleepy but arousable. she is complaining of pleuritic chest pain and productive cough but unable to bring up the phlegm. She also has been having intermittent fevers and chills. Her granddaughter apparently was diagnosed with flu (although she never tested positive per patient). She said that she used her nebulizer twice yesterday with no improvement in her symptoms so she decided to come to the hospital for further management and treatment. She denied any abdominal pain, nausea vomiting, diarrhea, constipation or any urinary symptoms. She complained of generalized weakness. In the ED, her temperature was 98.7, heart rate 123, respiratory 24, blood pressure 167/89 with oxygen saturation of 88% on room air. Her WBC was 11.9 and her hemoglobin was 15.6. Her initial troponin was negative and her proBNP was 377. Her magnesium was 1.1. A chest x-ray was done which was essentially unremarkable for any acute findings. She received 10 mg of albuterol neb x1, 0.5 mg Atrovent 1, DuoNeb 1 with no significant improvement in her breathing. Hospital Course Hospital Course: During this hospitalization the patient was treated with intravenous corticosteroids and intravenous Levaquin. She received frequent bronchodilators. As she improved her antibiotics and corticosteroids were changed to oral route. She will be discharged to complete a 10 day course of antibiotics and prednisone. She will continue DuoNeb therapy. During this hospitalization we also performed screening spirometry. The patient has a severe defect, possibly restrictive. Dr. Gudino of pulmonary medicine was consulted. He has recommended that the patient continue DuoNeb treatment for now. She will follow-up with Dr. Gudino in 3 weeks. During this hospitalization we did identify that the patient requires continuous oxygen. This has been arranged for discharge. She was also treated with nicotine patch and counseled to discontinue smoking cigarettes. Physical Exam Vital Signs: Temp Pulse Resp BP Pulse Ox 98.1 F 51 L 16 120/58 L 94 05/27/17 11:30 05/27/17 14:00 05/27/17 11:30 05/27/17 11:30 05/27/17 11:30 Intake & Output 05/26/17 05/27/17 05/28/17 06:59 06:59 06:59 Intake Total 1460 1540 Balance 1460 1540 Weight 72.6 kg 77.2 kg Additional comments: Patient is extremely polite. She is not in any distress while wearing oxygen. Her cognition and mentation are appropriate. Her facial appearance is unremarkable. Her lungs demonstrate occasional expiratory wheezing. She also has rales in the left lower lung base that extends one third the way up. She did have some Velcro rales yesterday, but they do appear to be somewhat intermittent. Her cardiac exam demonstrates a regular rate and rhythm without murmurs, gallops or rubs. The abdomen is noted to be soft and flat. Bowel sounds are present. She does not have guarding or rebound noted and there are no hernias or masses present. The lower extremities are warm to touch without edema. The skin is warm dry and intact without lesions or rashes. Results Laboratory Results: 05/26/17 06:20 05/26/17 06:20 Impressions: Chest X-Ray 05/22/17 14:41 IMPRESSION: NO ACUTE RADIOGRAPHIC FINDING IN THE CHEST. Qualifiers - * PATEINT BEING DISCHARGED WITH ANY OF THE FOLLOWING DIAGNOSIS?: No Plan Discharge Plan: 1. The patient should follow-up with her primary care physician in 1-2 weeks 2. Follow-up with Dr. Gudino as scheduled 3. Discharge diet is regular 4. Activity level will be as tolerated 5. Patient was given additional prescriptions of prednisone, Levaquin and DuoNeb upon discharge. Time Spent: Less than 30 Minutes
[2017-05-27 17:50] VITALS: BP 123/64
--- NOTE | 2017-05-28 14:03 | Pulmonary Function Test ---
Pulmonary Function Test Date of Procedure:: 05/22/17 INDICATION:: Dyspnea Referring Provider: Dr. Hussain Foy - Report Spirometry: FVC 0.77 L 26% postbronchodilator 1.17 L 40% FEV1 0.60 L 25% postbronchodilator 0.72 L 31% FEV1/FVC % 78 postbronchodilator 62 predicted 90 FEF 25-75% 0.72 29% postbronchodilator 0.73 29% Impression: Study demonstrates severe obstructive ventilatory defect with insignificant response to bronchodilator therapy. This in and of itself does not preclude a clinical trial of bronchodilator therapy. A restrictive defect is implied and this may mask the degree of obstruction. Restrictive defect cannot be diagnosed on the basis of spirometry alone. If clinically indicated complete pulmonary function tests would be warranted
== END 2017-05-27 18:32 | disposition home or self-care (01) | DRG 202 ==
LOC: ER 13:08 → EH 23:28 → 4W 05-23 01:12
PROVIDERS: ADMIT Internal Medicine Geriatric Medicine; ATTEND Internal Medicine Geriatric Medicine
PROC: 3E0F73Z Introduction of Anti-inflammatory into Respiratory Tract, Via Natural or Artificial Opening (ICD-10-PCS; principal; 2017-05-23)
DX: J20.9 Acute bronchitis, unspecified (principal); J96.21 Acute and chronic respiratory failure with hypoxia; J44.0 Chronic obstructive pulmonary disease with (acute) lower respiratory infection; I10 Essential (primary) hypertension; K21.9 Gastro-esophageal reflux disease without esophagitis; M19.90 Unspecified osteoarthritis, unspecified site; M79.7 Fibromyalgia; F32.9 Major depressive disorder, single episode, unspecified; R00.0 Tachycardia, unspecified; E83.42 Hypomagnesemia; E87.6 Hypokalemia; F17.210 Nicotine dependence, cigarettes, uncomplicated; E78.00 Pure hypercholesterolemia, unspecified; F41.9 Anxiety disorder, unspecified; Z99.81 Dependence on supplemental oxygen; Z79.899 Other long term (current) drug therapy; Z90.710 Acquired absence of both cervix and uterus; Z88.2 Allergy status to sulfonamides; Z82.3 Family history of stroke; Z82.49 Family history of ischemic heart disease and other diseases of the circulatory system; Z79.52 Long term (current) use of systemic steroids
CPT/HCPCS: 36415; 71046; 80048; 80053; 83735; 83880; 84484; 85025; 85027; 87804; 93005; 93010; 94060; 94640; 96361; 96365; 96366; 96375; 99285; J1644; J1885; J2920; J3475; J3490; J7030; J7512; J7620

== ENCOUNTER → 2017-07-11 | Outpatient (CLI) | payer MEDICARE ==
[2017-07-11 15:07] LABS: ARTERIAL BLOOD BASE EXCESS 5.5 mmol/L; ARTERIAL BLOOD H2CO3 1.38 mmol/L (1.05-1.35); ARTERIAL BLOOD HCO3 30.4 mmol/L (20-26); ARTERIAL BLOOD O2 SATURATION 94.4 % (94-98); ARTERIAL BLOOD PCO2 45.7 mmHg (35-45); ARTERIAL BLOOD PH 7.44 (7.35-7.45); ARTERIAL BLOOD PO2 69.2 mmHg (80-100); ARTERIAL BLOOD TOTAL CO2 31.8 mmol/L (21-25)
[2017-07-11 15:08] LABS: ARTERIAL BLOOD FIO2 2.5L
--- NOTE | 2017-07-11 16:21 | RADIOLOGY REPORT (SQ) ---
EXAM DESCRIPTION: CHEST PA/LATERAL COMPLETED DATE/TIME: 07/11/2017 3:04 pm REASON FOR STUDY: ACUTE AND CHRONIC RESPIRATORY FAILURE WITH HYPOXIA COMPARISON: May 2017 EXAM PARAMETERS: NUMBER OF VIEWS: two views TECHNIQUE: Digital Frontal and Lateral radiographic views of the chest acquired. RADIATION DOSE: NA LIMITATIONS: none FINDINGS: LUNGS AND PLEURA: No opacities, masses or pneumothorax. No pleural effusion. MEDIASTINUM AND HILAR STRUCTURES: No masses or contour abnormalities. HEART AND VASCULAR STRUCTURES: Heart normal size. No evidence for failure. BONES: Degenerative changes are identified in the thoracic spine HARDWARE: None in the chest. OTHER: Some elevation of the left hemidiaphragm is again seen. IMPRESSION: No significant interval change. No acute findings. Other findings as noted above TECHNICAL DOCUMENTATION: JOB ID: [id number] [employer]- All Rights Reserved Reading location - IP/workstation name: [email or web address]
== END ==
LOC: OD 14:23
PROVIDERS: ATTEND Internal Medicine Pulmonary Disease
DX: J96.21 Acute and chronic respiratory failure with hypoxia (principal)
CPT/HCPCS: 36600; 71046; 82803

== ENCOUNTER 2018-09-05 13:57 | Observation (INO) | payer MEDICARE ==
[2018-09-05] MEDS ORDERED: IPRATROPIUM/ALBUTEROL 0.5-2.5 MG/3 ML AMPUL NEB ONE ×2 (14:22→17:29)
--- NOTE | 2018-09-05 14:24 | ER Document Report ---
ED Medical Screen (RME) - General Chief Complaint: Breathing Difficulty Stated Complaint: COUGH Time Seen by Provider: 09/05/18 14:21 Primary Care Provider: RAHEL SIMMONS MD [Primary Care Provider] - Follow up as needed Notes: Patient is a 68-year-old COPD patient is noncompliant with medication regimens presents to the emergency department for respiratory distress for 2 days. States she has a pulse oximeter at home which read in the 70s last evening which concerned her. Patient states she is supposed to be on oxygen at night but does not use it. States she also does not have an albuterol inhaler. States she told her primary care provider she had one when really she did not. Patient's oxygen saturation noted by nursing staff was 85%. Upon my arrival to triage patient is in no respiratory distress, repeat pulse oxygenation was noted to be 95% on room air. Patient states she gets more winded upon exertion. Patient's denying any chest pain or pressure. Patient's denying any fevers. GENERAL: Alert, interacts well. No acute distress. LUNGS: Slightly diminished bilateral bases, no discernible wheezes, rales, or rhonchi. No respiratory distress. I have greeted and performed a rapid initial assessment of this patient. A comprehensive ED assessment and evaluation of the patient, analysis of test results and completion of the medical decision making process will be conducted by additional ED providers. This medical record was dictated with voice recognizing software. There may be grammatical, syntax errors that are unintended. TRAVEL OUTSIDE OF THE [place] IN LAST 30 DAYS: No - Related Data Allergies/Adverse Reactions: Sulfa (Sulfonamide Antibiotics) Allergy (Verified 09/05/18 13:57) Itching Past Medical History - Social History Chew tobacco use (# tins/day): No - Past Medical History Cardiac Medical History: Reports: Hx Hypercholesterolemia, Hx Hypertension Denies: Hx Heart Attack Pulmonary Medical History: Reports: Hx Bronchitis, Hx COPD Denies: Hx Asthma, Hx Pneumonia Neurological Medical History: Denies: Hx Seizures Renal/ Medical History: Denies: Hx Peritoneal Dialysis GI Medical History: Reports: Hx Gastroesophageal Reflux Disease Musculoskeltal Medical History: Reports Hx Arthritis, Reports Hx Fibromyalgia - 5 the Psychiatric Medical History: Reports: Hx Anxiety, Hx Depression Past Surgical History: Reports: Hx Hysterectomy, Hx Tonsillectomy - Immunizations Hx Diphtheria, Pertussis, Tetanus Vaccination: Yes History of Influenza Vaccine for 12/2016 - 05/2017 Season: No Physical Exam - Vital signs Vitals: Temp Pulse Resp BP Pulse Ox 97.8 F 108 H 26 H 141/93 H 85 L 09/05/18 14:06 09/05/18 14:06 09/05/18 14:06 09/05/18 14:06 09/05/18 14:06 Course - Vital Signs Vital signs: Temp Pulse Resp BP Pulse Ox 97.8 F 108 H 22 H 141/93 H 95 09/05/18 14:06 09/05/18 14:06 09/05/18 14:20 09/05/18 14:06 09/05/18 14:20 Doctor's Discharge - Discharge Referrals: RAHEL SIMMONS MD [Primary Care Provider] - Follow up as needed
--- NOTE | 2018-09-05 15:02 | RADIOLOGY REPORT (SQ) ---
EXAM DESCRIPTION: CHEST 2 VIEWS COMPLETED DATE/TIME: 09/05/2018 2:54 pm REASON FOR STUDY: SOB COMPARISON: 05/22/2017. EXAM PARAMETERS: NUMBER OF VIEWS: two views TECHNIQUE: Digital Frontal and Lateral radiographic views of the chest acquired. RADIATION DOSE: NA LIMITATIONS: none FINDINGS: LUNGS AND PLEURA: Chronic elevation of the left hemidiaphragm. No opacities, masses or pn eumothorax. No pleural effusion. MEDIASTINUM AND HILAR STRUCTURES: No masses or contour abnormalities. HEART AND VASCULAR STRUCTURES: Heart normal size. No evidence for failure. BONES: No acute findings. Degenerative changes in the spine. HARDWARE: None in the chest. OTHER: No other significant finding. IMPRESSION: NO ACUTE RADIOGRAPHIC FINDING IN THE CHEST. TECHNICAL DOCUMENTATION: JOB ID: [id number] [employer]- All Rights Reserved Reading location - IP/workstation name: [email or web address]
[2018-09-05 15:07] LABS: ABSOLUTE BASOPHILS # (AUTO) 0.1 10^3/uL (0.0-0.2); ABSOLUTE EOSINOPHILS # (AUTO) 0.1 10^3/uL (0.0-0.6); ABSOLUTE LYMPHOCYTES (AUTO) 2.8 10^3/uL (0.5-4.7); ABSOLUTE MONOCYTES (AUTO) 0.7 10^3/uL (0.1-1.4); ABSOLUTE NEUT (AUTO) 7.3 10^3/uL (1.7-8.2); BASOPHILS % (AUTO) 0.9 % (0-2); EOSINOPHILS % (AUTO) 0.8 % (0-6); HEMOGLOBIN 14.3 g/dL (12.0-15.5); LYMPHOCYTES % (AUTO) 25.4 % (13-45); MEAN CORPUSCULAR HEMOGLOBIN 31.8 pg (27.0-33.4); MEAN CORPUSCULAR HGB CONC 34.1 g/dL (32.0-36.0); MEAN CORPUSCULAR VOLUME 93 fl (80-97); MONOCYTES % (AUTO) 6.4 % (3-13); PLATELET COUNT 232 10^3/uL (150-450); RED BLOOD COUNT 4.51 10^6/uL (3.72-5.28); RED CELL DISTRIBUTION WIDTH 13.4 % (11.5-14.0); SEGMENTED NEUTROPHILS % (AUTO) 66.5 % (42-78); TOTAL CELLS COUNTED % (AUTO) 100 %
[2018-09-05 15:27] LABS: ALANINE AMINOTRANSFERASE 20 U/L (9-52); ALKALINE PHOSPHATASE 95 U/L (38-126); ANION GAP 10 (5-19); ASPARTATE AMINO TRANSFERASE 16 U/L (14-36); BILIRUBIN,DIRECT 0.2 mg/dL (0.0-0.4); BILIRUBIN,TOTAL 0.5 mg/dL (0.2-1.3); BLOOD UREA NITROGEN 9 mg/dL (7-20); CALCIUM 9.5 mg/dL (8.4-10.2); CARBON DIOXIDE 32 mmol/L (22-30); CHLORIDE 100 mmol/L (98-107); GLUCOSE 128 mg/dL (75-110); POTASSIUM 3.3 mmol/L (3.6-5.0); SODIUM 141.6 mmol/L (137-145)
[2018-09-05] MEDS ORDERED: PREDNISONE 20 MG TABLET PO ONE (16:44)
--- NOTE | 2018-09-05 16:48 | ER Document Report ---
ED Respiratory Problem - General Chief Complaint: Breathing Difficulty Stated Complaint: COUGH Time Seen by Provider: 09/05/18 14:21 Primary Care Provider: RAHEL SIMMONS MD [ACTIVE STAFF] - Follow up as needed Information source: Patient Notes: 68-year-old female still smokes about half a pack a day. Has a history of COPD. Used to be on home O2 but sent back to the the company because she was not using it. She presents to the ER today with short of breath wheezing coughing has no albuterol inhaler at home. Does not have a albuterol nebulizer of her own at home. She has been using her granddaughters. She has a Symbicort inhaler at home that she has been using for rescue. has not use the albuterol nebulizer and months. No fevers no chest pain no nausea vomiting diarrhea. TRAVEL OUTSIDE OF THE [place] IN LAST 30 DAYS: No - HPI Patient complains to provider of: COPD Quality of pain: No pain - Related Data Allergies/Adverse Reactions: Sulfa (Sulfonamide Antibiotics) Allergy (Verified 09/05/18 13:57) Itching Past Medical History - Social History Smoking Status: Current Every Day Smoker Chew tobacco use (# tins/day): No Family History: Reviewed & Not Pertinent, CVA, Hyperlipidemia, Hypertension Patient has suicidal ideation: No Patient has homicidal ideation: No - Past Medical History Cardiac Medical History: Reports: Hx Hypercholesterolemia, Hx Hypertension Denies: Hx Heart Attack Pulmonary Medical History: Reports: Hx Bronchitis, Hx COPD Denies: Hx Asthma, Hx Pneumonia Neurological Medical History: Denies: Hx Seizures Renal/ Medical History: Denies: Hx Peritoneal Dialysis GI Medical History: Reports: Hx Gastroesophageal Reflux Disease Musculoskeletal Medical History: Reports Hx Arthritis, Reports Hx Fibromyalgia - 5 the Psychiatric Medical History: Reports: Hx Anxiety, Hx Depression Past Surgical History: Reports: Hx Hysterectomy, Hx Tonsillectomy - Immunizations Hx Diphtheria, Pertussis, Tetanus Vaccination: Yes Review of Systems - Review of Systems Notes: REVIEW OF SYSTEMS: CONSTITUTIONAL : Denies fever, chills, or sweats. Denies recent illness. EENT: Denies eye, ear, throat, or mouth pain or symptoms. Denies nasal or s inus congestion. CARDIOVASCULAR: Denies chest pain. RESPIRATORY: Denies cough, cold, or chest congestion. Positive for shortness of breath wheezing and cough GASTROINTESTINAL: Denies abdominal pain. Denies nausea, vomiting, or diarrhea. Denies constipation. Last BM: GENITOURINARY: Denies difficulty urinating, painful urination, burning, frequency, or blood in urine. FEMALE GENITOURINARY: Denies vaginal bleeding, abnormal or irregular periods. LMP: MUSCULOSKELETAL: Denies neck or back pain or joint pain or swelling. SKIN: Denies rash or skin lesions. HEMATOLOGIC : Denies easy bruising or bleeding. LYMPHATIC: Denies swollen, enlarged glands. NEUROLOGICAL: Denies altered mental status or loss of consciousness. Denies headache. Denies weakness or paralysis or loss of use of either side. Denies problems with gait or speech. Denies sensory or motor loss. PSYCHIATRIC: Denies anxiety or stress or depression. ALL OTHER SYSTEMS REVIEWED AND NEGATIVE. Physical Exam - Vital signs Vitals: Temp Pulse Resp BP Pulse Ox 97.8 F 108 H 26 H 141/93 H 85 L 09/05/18 14:09/05/18 14:09/05/18 14:09/05/18 14:09/05/18 14:06 - Notes Notes: PHYSICAL EXAMINATION: GENERAL: Well-appearing, well-nourished and in no acute distress. HEAD: Atraumatic, normocephalic. EYES: Pupils equal round and reactive to light, extraocular movements intact, sclera anicteric, conjunctiva are normal. ENT: nares patent, oropharynx clear without exudates. Moist mucous membranes. NECK: Normal range of motion, supple without lymphadenopathy LUNGS: Breath sounds clear to auscultation bilaterally and equal. No wheezes rales or rhonchi. No wheezing no rhonchi. Breath sounds are clear. No distress. HEART: Regular rate and rhythm without murmurs ABDOMEN: Soft, nontender, normoactive bowel sounds. No guarding, no rebound. No masses appreciated. EXTREMITIES: Normal range of motion, no pitting or edema. No cyanosis. NEUROLOGICAL: No focal neurological deficits. Moves all extremities spontaneously and on command. PSYCH: Normal mood, normal affect. SKIN: Warm, Dry, normal turgor, no rashes or lesions noted. Course - Re-evaluation Re-evalutation: 09/05/18 16:47 Patient be given 2 nebulizers here in the department. She is no longer wheezing. Her sats off oxygen altogether are 92 to 96%. She is in no distress. I had a long discussion with patient she is to stop smoking. I will give her prescription for albuterol inhaler. Prednisone and antibiotic. She has an albuterol nebulizer at home with albuterol for the machine in her name. She is use the albuterol neb 4 times a day. She is to follow-up with her family doctor on Saturday. She is to follow-up with her human resources benefits administrator next week. - Vital Signs Vital signs: Temp Pulse Resp BP Pulse Ox 97.8 F 108 H 22 H 141/93 H 85 L 09/05/18 14:06 09/05/18 14:06 09/05/18 14:20 09/05/18 14:06 09/05/18 16:05 - Laboratory Result Diagrams: 09/05/18 14:44 09/05/18 14:44 Laboratory results interpreted by me: 09/05/18 09/05/18 14:44 14:44 WBC 11.0 H Potassium 3.3 L Carbon Dioxide 32 H Glucose 128 H - Diagnostic Test Radiology reviewed: Reports reviewed - Chest x-ray is negative. Discharge - Discharge Clinical Impression: COPD exacerbation Condition: Stable Disposition: HOME, SELF-CARE Additional Instructions: Chronic Obstructive Lung Disease You have chronic obstructive lung disease (COPD). The symptoms come from emphysema (damage to small airways, with trapping of air in large sacks in the lung) and chronic bronchitis (repeated infection and damage to larger airways). The cause is almost always cigarette smoking, although dust exposure, asthma, and infections contribute. You should avoid fumes, dust, and smoke (especially tobacco smoke). Your condition will flare from time to time. There is no cure, but the symptoms can be treated. Bronchodilators (asthma medicine) are often helpful. Antibiotics help when infection is present. When shortness of breath is severe, we may prescribe cortisone medication. If medicine doesn't help enough, we can arrange for you to have an oxygen tank at home. Notify your doctor at once if sputum becomes thick, foul, or bloody, if you develop a fever or chest pain, or if your shortness of breath worsens. STEROID MEDICATION: You have been given an injection of or oral medicine of the cortisone/steroid class. This medication is used to control inflammation or allergy. Andrez t is usually only given for a short period of time, until the acute process subsides. There are usually no side effects from short-term use of cortisone-like medications. Some persons feel an increased sense of well-being and are not sleepy at bedtime. Long-term use of cortisone medications is best avoided, unless required for a severe condition. If your condition does not remit, or relapses after the course of corticosteroid medication, you should consult your physician. INHALED BRONCHODILATORS: You have received treatment(s) of and/or prescription for an inhaled bronchodilator -- a medication which stimulates the airways in the lung to dilate. This improves the flow of air in asthma, bronchitis, and emphysema. These medicines have some similarity to adrenaline, and can cause similar side effects: shakiness, racing heart, and a sense of nervousness. These side effects decrease with time. Contact your doctor if these side effects are severe. Do not over-use the medicine. Too-frequent use of the inhaler may make it ineffective. Call your doctor if the inhaler is not controlling your symptoms at the prescribed doses. SMOKING: If you smoke, you should stop smoking. The tar and chemicals in cigarette smoke are harmful. Smoking has been shown to cause: emphysema chronic bronchitis lung cancer mouth and throat cancer stomach and pancreas cancer premature aging defects In addition, smoking increases ear and lung infections in children of smokers. ANTIBIOTIC THERAPY: You have been given an antibiotic prescription. It's important that you take all the medication, unless instructed otherwise by your physician. Failure to complete the entire course can result in relapse of your condition. Common side effects of antibiotics include nausea, intestinal cramping, or diarrhea. Women may develop vaginal yeast infections, and babies can get yeast (thrush) in the mouth following the use of antibiotics. Contact your physician if you develop significant side effects from this medication. Allergy to this antibiotic can result in hives, wheezing, faintness, or itching. If symptoms of allergy occur, stop the medication and call your doctor. AZITHROMYCIN: Azithromycin (Zithromax) is a broad spectrum antibiotic in the same class as erythromycin. It can treat a variety of bacterial infections, but is most frequently used for respiratory infections. Azithromycin is extremely long-lasting. It accumulates in body tissues and continues to kill bacteria for many days. In order to improve absorption, Azithromycin should be taken at least one hour before or two hours after a meal. It does not have the same strong tendency to upset the stomach as erythromycin and is usually very well tolerated. Patients who have had a rash or other true allergic reactions to erythromycin should not take this medication. Call if you develop gastrointestinal distress, severe diarrhea, rash, hives, itching, or shortness of breath. USE OF ACETAMINOPHEN: Acetaminophen may be taken for pain relief or fever control. It's much safer than aspirin, offering a wider range of "safe" dosages. It is safe during . Some brand names are Tylenol, Panadol, Datril, Anacin 3, Tempra, and Liquiprin. Acetaminophen can be repeated every four hours. The following are maximum recommended dosages: USE OF ACETAMINOPHEN (Tylenol): Acetaminophen may be taken for pain relief or fever control. It's much safer than aspirin, offering a wider range of "safe" dosages. It is safe during . Some brand names are Tylenol, Panadol, Datril, Anacin 3, Tempra, and Liquiprin. Acetaminophen can be repeated every four hours. The following are maximum recommended dosages: WEIGHT Dose Drops Elixir Chewable(80mg) (LBS.) drprs=droppers tsp=teaspoon 6 40 mg 0.4 ml (1/2) 6-11 80 mg 0.8 ml (full) tsp 1 tab 12-16 120 mg 1 1/2 drprs 3/4 tsp 1 1/2 tabs 17-23 160 mg 2 drprs 1 tsp 2 tabs 24-30 240 mg 3 drprs 1 1/2 tsp 3 tabs 30-35 320 mg 2 tsp 4 tabs 36-41 360 mg 2 1/4 tsp 4 1/2 tabs 42-47 400 mg 2 1/2 tsp 5 tabs 48-53 480 mg 3 tsp 6 tabs 54-59 520 mg 3 1/4 tsp 6 1/2 tabs 60-64 560 mg 3 1/2 tsp 7 tabs 65-70 600 mg 3 3/4 tsp 7 1/2 tabs 71-76 640 mg 4 tsp 8 tabs 77-82 720 mg 4 1/2 tsp 9 tabs 83-88 800 mg 5 tsp 10 tabs >89 pounds or adults 650 mg to 900 mg Acetaminophen can be repeated every four hours. Maximum dose not to exceed 4000 mg a day. These maximum recommended dosages are slightly higher than the dosages written on the product container, but these dosages are very safe and below the toxic dosage for acetaminophen. FOLLOW-UP CARE: If you have been referred to a physician for follow-up care, call the physicia office for an appointment as you were instructed or within the next two days. If you experience worsening or a significant change in your symptoms, notify the physician immediately or return to the Emergency Department at any time for re-evaluation. Prescriptions: Albuterol Sulfate [Proair HFA Inhalation Aerosol 8.5 gm MDI] 2 puff IH Q4H PRN #1 mdi PRN Reason: Azithromycin [Zithromax 250 mg Tablet] 250 mg PO ASDIR PRN #6 tablet PRN Reason: Prednisone [Deltasone 20 mg Tablet] 2 tab PO DAILY 5 Days #10 tablet Referrals: RAHEL SIMMONS MD [ACTIVE STAFF] - Follow up as needed
[2018-09-05] MEDS ORDERED: POTASSIUM CHLORIDE 10 MEQ CAPSULE.ER PO ONE (16:49)
[2018-09-05] MEDS ORDERED: ACETAMINOPHEN 650 MG SUPP.RECT PR PRN (19:11)
[2018-09-05] MEDS ORDERED: ONDANSETRON 4 MG TAB.RAPDIS PO PRN (19:11)
[2018-09-05] MEDS ORDERED: PROMETHAZINE HCL INJ 25 MG/1 ML VIAL IV PRN (19:11)
[2018-09-05] MEDS ORDERED: OXYCODONE-ACETAMINOPHEN 5-325 MG TABLET PO PRN (19:11)
[2018-09-05] MEDS ORDERED: ZOLPIDEM TARTRATE 5 MG TABLET PO PRN (19:11)
--- NOTE | 2018-09-05 19:11 | PDOC H&P ---
History of Present Illness Admission Date/PCP: 09/05/18 17:47 KENJI ROSENBAUM, [facility] History of Present Illness: 68-year-old female with past medical history of hypertension (on propranolol), hyperlipidemia, current heavy smoker, anxiety, depression, COPD(undiagnosed, has not seen a skylights assembler, for PFT but refused to do it) last admission 05/22/2017 COPD exacerbation, sent home on O2 but noncompliant, was scheduled to see skylights assembler did not follow-up. Patient presenting to ED complaining of chronic worsening shortness of breath worse on exertion. With nonproductive nonbloody cough back abuse denies any chest pain, nausea, vomiting, diarrhea, constipation, wheezing, weight changes or recent upper respiratory infection, sick contacts. In ED she was found to be hypoxic SpO2 85% on 2 L NC, start on nebs and supplemental oxygen with no improvement. Hospitalist was consulted for admission. Past Medical History Cardiac Medical History: Reports: Hyperlipidema, Hypertension Denies: Myocardial Infarction Pulmonary Medical History: Reports: Bronchitis, Chronic Obstructive Pulmonary Disease (COPD) Denies: Asthma, Pneumonia Neurological Medical History: Denies: Seizures GI Medical History: Reports: Gastroesophageal Reflux Disease Musculoskeltal Medical History: Reports: Arthritis, Fibromyalgia - 5 the Psychiatric Medical History: Reports: Depression Hematology: Denies: Anemia Past Surgical History Past Surgical History: Reports: Hysterectomy, Tonsillectomy Social History Smoking Status: Current Every Day Smoker Frequency of Alcohol Use: None Hx Recreational Drug Use: No Hx Prescription Drug Abuse: No Family History Family History: Reviewed & Not Pertinent, CVA, Hyperlipidemia, Hypertension Parental Family History Reviewed: Yes Children Family History Reviewed: Yes Sibling(s) Family History Reviewed.: Yes Medication/Allergy Home Medications: Albuterol Sulfate [Proair HFA Inhalation Aerosol 8.5 gm MDI] 2 puff IH Q4HP PRN 09/05/18 Alprazolam [Xanax] 1 mg PO TID 09/05/18 Aspirin [Adult Low Dose Aspirin EC] 81 mg PO DAILY 09/05/18 Budesonide/Formoterol Fumarate [Symbicort HFA 160-4.5 mcg Inhaler 6 gm] 2 puff IH Q12 09/05/18 Ipratropium/Albuterol Sulfate [Duoneb 3 ml Ampul] 3 ml NEB RTQ6 09/05/18 Nicotine [Nicoderm 21 mg/24 Hr Transderm Patch] 1 patch TD DAILY 09/05/18 Pravastatin Sodium [Pravachol] 80 mg PO QHS 09/05/18 Propranolol HCl [Inderal 20 mg Tablet] 20 mg PO Q12 09/05/18 Vilazodone HCl [Viibryd] 40 mg PO DAILY 09/05/18 Vortioxetine Hydrobromide [Trintellix] 5 mg PO DAILY 09/05/18 Allergies/Adverse Reactions: Sulfa (Sulfonamide Antibiotics) Allergy (Verified 09/05/18 13:57) Itching Review of Systems Review of Systems: as per hpi Physical Exam Vital Signs: Temp Pulse Resp BP Pulse Ox 97.8 F 108 H 22 H 147/79 H 94 09/05/18 14:06 09/05/18 14:06 09/05/18 18:23 09/05/18 18:23 09/05/18 18:39 Intake & Output 09/04/18 09/05/18 09/06/18 06:59 06:59 06:59 Weight 76.4 kg General appearance: PRESENT: no acute distress, obese, well-developed, well- nourished Head exam: PRESENT: atraumatic, normocephalic Respiratory exam: PRESENT: clear to auscultation cecilio, wheezes. ABSENT: rales, rhonchi Cardiovascular exam: PRESENT: RRR. ABSENT: diastolic murmur, rubs, systolic murmur GI/Abdominal exam: PRESENT: normal bowel sounds, soft. ABSENT: distended, guarding, mass, organolmegaly, rebound, tenderness Extremities exam: PRESENT: full ROM. ABSENT: calf tenderness, clubbing, pedal edema Neurological exam: PRESENT: alert, awake, oriented to person, oriented to place, oriented to time, oriented to situation, CN II-XII grossly intact. ABSENT: motor sensory deficit Results Laboratory Results: 09/05/18 14:44 09/05/18 14:44 09/05/18 09/05/18 14:44 14:44 WBC 11.0 H RBC 4.51 Hgb 14.3 Hct 42.0 MCV 93 MCH 31.8 MCHC 34.1 RDW 13.4 Plt Count 232 Seg Neutrophils % 66.5 Lymphocytes % 25.4 Monocytes % 6.4 Eosinophils % 0.8 Basophils % 0.9 Absolute Neutrophils 7.3 Absolute Lymphocytes 2.8 Absolute Monocytes 0.7 Absolute Eosinophils 0.1 Absolute Basophils 0.1 Sodium 141.6 Potassium 3.3 L Chloride 100 Carbon Dioxide 32 H Anion Gap 10 BUN 9 Creatinine 0.62 Est GFR ( Amer) > 60 Est GFR (Non-Af Amer) > 60 Glucose 128 H Calcium 9.5 Total Bilirubin 0.5 AST 16 ALT 20 Alkaline Phosphatase 95 Total Protein 7.0 Albumin 4.0 09/05/18 14:44 NT-Pro-B Natriuret Pep 96 Impressions: Chest X-Ray 09/05/18 14:21 IMPRESSION: NO ACUTE RADIOGRAPHIC FINDING IN THE CHEST. Assessment and Plan - Diagnosis (1) Acute and chronic respiratory failure with hypoxia Is this a current diagnosis for this admission?: Yes Plan: Due to COPD exacerbation. Most likely due to noncompliance with upper respiratory infection likely bronchitis. Supplemental oxygen, nebs, IV steroids, empiric IV antibiotics, LABA, LAMA. Avoid beta-blockers if possible. Advised on quitting smoking. Outpatient pulmonary follow-up. (2) COPD exacerbation Is this a current diagnosis for this admission?: Yes Plan: As per #1. (3) Hypertension Qualifiers: Is this a current diagnosis for this admission?: No Plan: Not controlled. Switch propranolol to lisinopril. Adjust meds as needed. Outpatient PCP follow-up She takes propranolol for hypertension which is not first-line and also may be contraindicated due to the fact that patient has COPD and asthma. Note patient has not had a PFT and has not been followed by a skylights assembler. (4) Depression Is this a current diagnosis for this admission?: No Plan: Denies any suicidal/homicidal ideation. Restart home meds. Outpatient PCP follow-up. (5) Anxiety Is this a current diagnosis for this admission?: No Plan: Restart home meds. (6) Tobacco abuse Is this a current diagnosis for this admission?: No Plan: Counseled patient and her who is also a smoker on quitting. Started on NicoDerm patch. (7) Hyperlipidemia Is this a current diagnosis for this admission?: No Plan: ASCVD score 7.2%. Restart home meds.
[2018-09-05] MEDS ORDERED: HYDRALAZINE HCL INJ/PF 20 MG/1 ML SDV IV PRN (19:15)
[2018-09-05] MEDS ORDERED: AZITHROMYCIN 250 MG TABLET PO SCH (20:00)
[2018-09-05] MEDS: IPRATROPIUM/ALBUTEROL 0.5-2.5 MG/3 ML AMPUL NEB SCH (20:51)
[2018-09-05] MEDS: METHYLPREDNISOLONE INJ 40 MG/1 ML SDV IV SCH (21:23)
[2018-09-05] MEDS: FAMOTIDINE 20 MG TABLET PO SCH (21:24)
[2018-09-05] MEDS ORDERED: ALPRAZOLAM 0.5 MG TABLET PO PRN (21:34)
--- NOTE | 2018-09-05 22:09 | EKG REPORT ---
SEVERITY:- NORMAL ECG - SINUS RHYTHM : Confirmed by: Scott Glass MD 05-Sep-2018 22:08:39
[2018-09-06 04:11] LABS: ABSOLUTE LYMPHOCYTES (AUTO) 0.5 10^3/uL (0.5-4.7); ABSOLUTE MONOCYTES (AUTO) 0.1 10^3/uL (0.1-1.4); ABSOLUTE NEUT (AUTO) 8.7 10^3/uL (1.7-8.2); BASOPHILS % (AUTO) 0.1 % (0-2); HEMATOCRIT 40.1 % (36.0-47.0); HEMOGLOBIN 13.5 g/dL (12.0-15.5); LYMPHOCYTES % (AUTO) 5.3 % (13-45); MEAN CORPUSCULAR HEMOGLOBIN 31.8 pg (27.0-33.4); MEAN CORPUSCULAR HGB CONC 33.8 g/dL (32.0-36.0); MEAN CORPUSCULAR VOLUME 94 fl (80-97); MONOCYTES % (AUTO) 0.8 % (3-13); PLATELET COUNT 212 10^3/uL (150-450); RED BLOOD COUNT 4.25 10^6/uL (3.72-5.28); RED CELL DISTRIBUTION WIDTH 13.6 % (11.5-14.0); SEGMENTED NEUTROPHILS % (AUTO) 93.8 % (42-78); TOTAL CELLS COUNTED % (AUTO) 100 %; WHITE BLOOD COUNT 9.3 10^3/uL (4.0-10.5)
[2018-09-06 04:30] LABS: ANION GAP 13 (5-19); BLOOD UREA NITROGEN 7 mg/dL (7-20); CALCIUM 10.3 mg/dL (8.4-10.2); CARBON DIOXIDE 24 mmol/L (22-30); CHLORIDE 105 mmol/L (98-107); CHOLESTEROL 213.49 mg/dL (0-200); GLUCOSE 333 mg/dL (75-110); SODIUM 142.2 mmol/L (137-145); TRIGLYCERIDES 70 mg/dL (<150)
[2018-09-06 04:41] LABS: DIRECT LDL 125 mg/dL (<100)
[2018-09-06 04:50] LABS: POTASSIUM 4.3 mmol/L (3.6-5.0)
[2018-09-06] MEDS: FAMOTIDINE 20 MG TABLET PO SCH ×2 (06:30→18:10)
[2018-09-06] MEDS: METHYLPREDNISOLONE INJ 40 MG/1 ML SDV IV SCH ×3 (06:30→22:19)
[2018-09-06] MEDS: IPRATROPIUM/ALBUTEROL 0.5-2.5 MG/3 ML AMPUL NEB SCH ×4 (07:41→20:39)
[2018-09-06] MEDS: ENOXAPARIN SODIUM INJ 40 MG/0.4 ML DISP.SYRIN SUBCUT SCH (11:47)
[2018-09-06] MEDS: DOCUSATE SODIUM 100 MG CAPSULE PO SCH ×2 (11:47→18:11)
[2018-09-06] MEDS ORDERED: DEXTROSE 50%-WATER 25 GM/50 ML DISP.SYRIN IV PRN ×2 (12:04)
[2018-09-06] MEDS ORDERED: DEXTROSE 40% GEL 15 GM TUBE PO PRN ×2 (12:04)
[2018-09-06] MEDS ORDERED: GLUCAGON,HUMAN RECOMB 1 MG INJ IM PRN (12:04)
[2018-09-06] MEDS ORDERED: (PENDING PHARMACY ID) (Vortioxetine Hydrobromide [Trintellix] 5 MG) PO SCH (12:15)
[2018-09-06] MEDS ORDERED: (PENDING PHARMACY ID) (Vilazodone Hcl [Viibryd] 40 MG) PO SCH (12:15)
[2018-09-06] MEDS: LISINOPRIL 10 MG TABLET PO SCH (13:16)
[2018-09-06] MEDS: ASPIRIN 81 MG TABLET, ENT COATED PO SCH (13:16)
[2018-09-06] MEDS: NICOTINE 21 MG/24 HR PATCH.TD24 TD SCH (13:16)
[2018-09-06] MEDS: ALPRAZOLAM 0.5 MG TABLET PO SCH ×3 (13:44→22:16)
[2018-09-06 14:23] LABS: APPEARANCE,URINE CLEAR; BILIRUBIN,URINE NEGATIVE (NEGATIVE); COLOR,URINE STRAW; GLUCOSE, URINE >=500 mg/dL (NEGATIVE); KETONES,URINE NEGATIVE (NEGATIVE); LEUKOCYTE ESTERASE,URINE NEGATIVE (NEGATIVE); NITRITE,URINE NEGATIVE (NEGATIVE); PROTEIN,URINE NEGATIVE (NEGATIVE); URINE SPECIFIC GRAVITY 1.007; UROBILINOGEN,URINE NEGATIVE mg/dL (<2.0)
--- NOTE | 2018-09-06 16:27 | PDOC PROGRESS REPORT ---
Subjective Progress Note for:: 09/06/18 Subjective:: 68-year-old female with past medical history of hypertension (on propranolol), hyperlipidemia, current heavy smoker, anxiety, depression, COPD(undiagnosed, has not seen a visual journalist, for PFT but refused to do it) last admission 05/22/2017 COPD exacerbation, sent home on O2 but noncompliant, was scheduled to see visual journalist did not follow-up. Patient presenting to ED complaining of chronic worsening shortness of breath worse on exertion. With nonproductive nonbloody cough back abuse denies any chest pain, nausea, vomiting, diarrhea, constipation, wheezing, weight changes or recent upper respiratory infection, sick contacts. In ED she was found to be hypoxic SpO2 85% on 2 L NC, start on nebs and supplemental oxygen with no improvement. Hospitalist was consulted for admission. 09/06/2018. No acute events overnight. Patient still requiring oxygen. A mbulatory, p.o. tolerant, having normal bowel and bladder movements. Denies any fever, chills, nausea, vomiting, diarrhea, constipation or any urinary symptoms. Reason For Visit: COPD EXACERBATION Physical Exam Vital Signs: Temp Pulse Resp BP Pulse Ox 98.1 F 85 18 131/66 H 95 09/06/18 11:44 09/06/18 16:15 09/06/18 16:15 09/06/18 11:44 09/06/18 16:15 Intake & Output 09/05/18 09/06/18 09/07/18 06:59 06:59 06:59 Intake Total 1797 Balance 1797 Weight 75.3 kg General appearance: PRESENT: no acute distress, obese, well-developed, well- nourished Head exam: PRESENT: atraumatic, normocephalic Respiratory exam: PRESENT: clear to auscultation cecilio, wheezes. ABSENT: rales, rhonchi GI/Abdominal exam: PRESENT: normal bowel sounds, soft. ABSENT: distended, guard ing, mass, organolmegaly, rebound, tenderness Extremities exam: PRESENT: full ROM. ABSENT: calf tenderness, clubbing, pedal edema Neurological exam: PRESENT: alert, awake, oriented to person, oriented to place, oriented to time, oriented to situation, CN II-XII grossly intact. ABSENT: motor sensory deficit Psychiatric exam: PRESENT: anxious Results Laboratory Results: 09/06/18 04:00 09/06/18 04:00 09/06/18 09/06/18 09/06/18 04:00 04:00 04:00 WBC 9.3 RBC 4.25 Hgb 13.5 Hct 40.1 MCV 94 MCH 31.8 MCHC 33.8 RDW 13.6 Plt Count 212 Seg Neutrophils % 93.8 H Lymphocytes % 5.3 L Monocytes % 0.8 L Eosinophils % 0.0 Basophils % 0.1 Absolute Neutrophils 8.7 H Absolute Lymphocytes 0.5 Absolute Monocytes 0.1 Absolute Eosinophils 0.0 Absolute Basophils 0.0 Sodium 142.2 Potassium 4.3 D Chloride 105 Carbon Dioxide 24 Anion Gap 13 BUN 7 Creatinine 0.58 Est GFR ( Amer) > 60 Est GFR (Non-Af Amer) > 60 Glucose 333 H Calcium 10.3 H Magnesium 1.6 Triglycerides 70 Cholesterol 213.49 H LDL Cholesterol Direct 125 H VLDL Cholesterol 14.0 HDL Cholesterol 89 TSH 0.33 L Urine Color Urine Appearance Urine pH Ur Specific [place] Urine Protein Urine Glucose (UA) Urine Ketones Urine Blood Urine Nitrite Ur Leukocyte Esterase Urine WBC (Auto) Urine RBC (Auto) 09/06/18 13:50 WBC RBC Hgb Hct MCV MCH MCHC RDW Plt Count Seg Neutrophils % Lymphocytes % Monocytes % Eosinophils % Basophils % Absolute Neutrophils Absolute Lymphocytes Absolute Monocytes Absolute Eosinophils Absolute Basophils Sodium Potassium Chloride Carbon Dioxide Anion Gap BUN Creatinine Est GFR ( Amer) Est GFR (Non-Af Amer) Glucose Calcium Magnesium Triglycerides Cholesterol LDL Cholesterol Direct VLDL Cholesterol HDL Cholesterol TSH Urine Color STRAW Urine Appearance CLEAR Urine pH 6.0 Ur Specific [place] 1.007 Urine Protein NEGATIVE Urine Glucose (UA) >=500 H Urine Ketones NEGATIVE Urine Blood MODERATE H Urine Nitrite NEGATIVE Ur Leukocyte Esterase NEGATIVE Urine WBC (Auto) 0 Urine RBC (Auto) 0 09/05/18 14:44 NT-Pro-B Natriuret Pep 96 Impressions: Chest X-Ray 09/05/18 14:21 IMPRESSION: NO ACUTE RADIOGRAPHIC FINDING IN THE CHEST. Assessment and Plan - Diagnosis (1) Acute and chronic respiratory failure with hypoxia Is this a current diagnosis for this admission?: Yes Plan: Due to COPD exacerbation. Most likely due to noncompliance with upper respiratory infection likely bronchitis. Supplemental oxygen, nebs, IV steroids, empiric IV antibiotics, LABA, LAMA. Avoid beta-blockers if possible. Advised on quitting smoking. Outpatient pulmonary follow-up. (2) COPD exacerbation Is this a current diagnosis for this admission?: Yes Plan: As per #1. (3) Upper respiratory infection Qualifiers: URI type: unspecified URI Qualified Code(s): J06.9 - Acute upper respiratory infection, unspecified Is this a current diagnosis for this admission?: Yes Plan: Empiric IV antibiotics. Follow-up sputum and blood culture. (4) Hypertension Qualifiers: Is this a current diagnosis for this admission?: No Plan: Not controlled. Switch propranolol to lisinopril. Adjust meds as needed. Outpatient PCP follow-up She takes propranolol for hypertension which is not first-line and also may be contraindicated due to the fact that patient has COPD and asthma. Note patient has not had a PFT and has not been followed by a visual journalist. (5) Depression Is this a current diagnosis for this admission?: No Plan: Denies any suicidal/homicidal ideation. Restart home meds. Outpatient PCP follow-up. (6) Hyperlipidemia Is this a current diagnosis for this admission?: No Plan: ASCVD score 7.2%. Restart home meds. (7) Tobacco abuse Is this a current diagnosis for this admission?: No Plan: Counseled patient and her who is also a smoker on quitting. Started on NicoDerm patch.
[2018-09-06] MEDS: INSULIN LISPRO 100 UNIT/ML 3 ML VIAL SUBCUT SCH ×2 (18:10→22:19)
[2018-09-06] MEDS ORDERED: AZITHROMYCIN 250 MG TABLET ONE (18:32)
[2018-09-06] MEDS ORDERED: AZITHROMYCIN 250 MG TABLET PO SCH (19:30)
[2018-09-06] MEDS ORDERED: SIMVASTATIN 40 MG TABLET PO SCH (22:00)
[2018-09-06] MEDS ORDERED: ATORVASTATIN CALCIUM 20 MG TABLET PO SCH (22:00)
[2018-09-07 04:23] LABS: HEMATOCRIT 37.3 % (36.0-47.0); HEMOGLOBIN 12.5 g/dL (12.0-15.5); MEAN CORPUSCULAR HEMOGLOBIN 31.1 pg (27.0-33.4); MEAN CORPUSCULAR HGB CONC 33.3 g/dL (32.0-36.0); MEAN CORPUSCULAR VOLUME 93 fl (80-97); PLATELET COUNT 224 10^3/uL (150-450); RED CELL DISTRIBUTION WIDTH 13.8 % (11.5-14.0); WHITE BLOOD COUNT 16.8 10^3/uL (4.0-10.5)
[2018-09-07 04:35] LABS: ANION GAP 11 (5-19); BLOOD UREA NITROGEN 11 mg/dL (7-20); CALCIUM 10.3 mg/dL (8.4-10.2); CARBON DIOXIDE 28 mmol/L (22-30); CHLORIDE 103 mmol/L (98-107); GLUCOSE 206 mg/dL (75-110); POTASSIUM 3.9 mmol/L (3.6-5.0); SODIUM 141.6 mmol/L (137-145)
[2018-09-07 04:39] LABS: ABSOLUTE LYMPHOCYTES# (MANUAL) 1.2 10^3/uL (0.5-4.7); ABSOLUTE MONOCYTES # (MANUAL) 0.5 10^3/uL (0.1-1.4); ABSOLUTE NEUTROPHILS# (MANUAL) 15.1 10^3/uL (1.7-8.2); BAND NEUTROPHILS % (MANUAL) 2 % (3-5); BASOPHILS % (MANUAL) 0 % (0-2); EOSINOPHILS % (MANUAL) 0 % (0-6); LYMPHOCYTES % (MANUAL) 7 % (13-45); MONOCYTES % (MANUAL) 3 % (3-13); SEGMENTED NEUTROPHILS % (MAN) 88 % (42-78); TOTAL CELLS COUNTED 100
[2018-09-07 04:41] LABS: PLATELET COMMENT ADEQUATE; POLYCHROMASIA SLIGHT; SCHISTOCYTES SLIGHT
[2018-09-07 04:50] LABS: FREE T3 2.44 pg/mL (2.77-5.27); FREE T4 (FREE THYROXINE) 1.14 ng/dL (0.78-2.19)
[2018-09-07] MEDS: METHYLPREDNISOLONE INJ 40 MG/1 ML SDV IV SCH ×2 (05:39→14:27)
[2018-09-07] MEDS: FAMOTIDINE 20 MG TABLET PO SCH (05:39)
[2018-09-07] MEDS ORDERED: MAGNESIUM SULFATE/D5W 1 GM/100 ML RTUPB IV ONE (07:01)
[2018-09-07] MEDS: IPRATROPIUM/ALBUTEROL 0.5-2.5 MG/3 ML AMPUL NEB SCH ×3 (08:45→15:38)
[2018-09-07] MEDS: INSULIN LISPRO 100 UNIT/ML 3 ML VIAL SUBCUT SCH ×2 (08:49→12:49)
[2018-09-07] MEDS: ALPRAZOLAM 0.5 MG TABLET PO SCH ×2 (08:50→14:27)
[2018-09-07] MEDS ORDERED: FLUTICASONE/VILANTEROL 200-25 MCG/DOSE IH SCH (10:00)
[2018-09-07] MEDS: ENOXAPARIN SODIUM INJ 40 MG/0.4 ML DISP.SYRIN SUBCUT SCH (10:00)
[2018-09-07] MEDS: NICOTINE 21 MG/24 HR PATCH.TD24 TD SCH (10:02)
[2018-09-07] MEDS: ASPIRIN 81 MG TABLET, ENT COATED PO SCH (10:04)
[2018-09-07] MEDS: DOCUSATE SODIUM 100 MG CAPSULE PO SCH (10:04)
[2018-09-07] MEDS: LISINOPRIL 10 MG TABLET PO SCH (10:04)
[2018-09-07 16:37] VITALS: BP 141/60
--- NOTE | 2018-09-09 14:50 | PDOC DISCHARGE SUMMARY ---
General - Admit/Disc Date/PCP Admission Date/Primary Care Provider: 09/05/18 17:47 KATRINA PINON-Siobhan Discharge Date: 09/07/18 - Discharge Diagnosis (1) Acute and chronic respiratory failure with hypoxia Is this a current diagnosis for this admission?: Yes (2) COPD exacerbation Is this a current diagnosis for this admission?: Yes (3) Upper respiratory infection Is this a current diagnosis for this admission?: Yes (4) Hypertension Is this a current diagnosis for this admission?: No (5) Depression Is this a current diagnosis for this admission?: No (6) Hyperlipidemia Is this a current diagnosis for this admission?: No (7) Tobacco abuse Is this a current diagnosis for this admission?: No - Additional Information Discharge Activity: Balance Activity w/Rest, Slowly Increase Activity Prescriptions: Azithromycin 250 mg PO DAILY 3 Days #3 tablet Budesonide/Formoterol Fumarate [Symbicort HFA 160-4.5 mcg Inhaler 6 gm] 2 puff IH Q12 #1 inhaler Ipratropium/Albuterol Sulfate [Combivent Respimat 4 gm Mdi] 1 puff IH Q6 PRN 30 Days #1 aer.w.adap NS PRN Reason: Lisinopril [Prinivil 10 mg Tablet] 10 mg PO DAILY 30 Days #30 tablet Prednisone [Deltasone 20 mg Tablet] 40 mg PO DAILY 3 Days #3 tablet Tiotropium Paicines [Spiriva Respimat] 4 gm IH DAILY 30 Days #5 mist.inhal Home Medications: Alprazolam [Xanax] 1 mg PO TID 09/05/18 Aspirin [Adult Low Dose Aspirin EC] 81 mg PO DAILY 09/05/18 Nicotine [Nicoderm 21 mg/24 Hr Transderm Patch] 1 patch TD DAILY 09/05/18 Pravastatin Sodium [Pravachol] 80 mg PO QHS 09/05/18 Vilazodone HCl [Viibryd] 40 mg PO DAILY 09/05/18 Vortioxetine Hydrobromide [Trintellix] 5 mg PO DAILY 09/05/18 Azithromycin 250 mg PO DAILY 3 Days #3 tablet 09/07/18 Budesonide/Formoterol Fumarate [Symbicort HFA 160-4.5 mcg Inhaler 6 gm] 2 puff IH Q12 #1 inhaler 09/07/18 Ipratropium/Albuterol Sulfate [Combivent Respimat 4 gm Mdi] 1 puff IH Q6 PRN 30 Days #1 aer.w.adap NS 09/07/18 Lisinopril [Prinivil 10 mg Tablet] 10 mg PO DAILY 30 Days #30 tablet 09/07/18 Prednisone [Deltasone 20 mg Tablet] 40 mg PO DAILY 3 Days #3 tablet 09/07/18 Tiotropium Paicines [Spiriva Respimat] 4 gm IH DAILY 30 Days #5 mist.inhal 09/07/18 History of Present Illness History of Present Illness: 68-year-old female with past medical history of hypertension (on propranolol), hyperlipidemia, current heavy smoker, anxiety, depression, COPD(undiagnosed, has not seen a trap puller, for PFT but refused to do it) last admission 05/22/2017 COPD exacerbation, sent home on O2 but noncompliant, was scheduled to see trap puller did not follow-up. Patient presenting to ED complaining of chronic worsening shortness of breath worse on exertion. With nonproductive nonbloody cough back abuse denies any chest pain, nausea, vomiting, diarrhea, constipation, wheezing, weight changes or recent upper respiratory infection, sick contacts. In ED she was found to be hypoxic SpO2 85% on 2 L NC, start on nebs and supplemental oxygen with no improvement. Hospitalist was consulted for admission. Hospital Course Hospital Course: (1) Acute and chronic respiratory failure with hypoxia Improved. Due to COPD exacerbation. Most likely due to noncompliance with upper respiratory infection likely bronchitis. Was discharged on supplemental oxygen, LABA, LAMA, and empiric p.o. antibiotics. Was p.o. steroids to complete 4 days. Advised on quitting smoking. Outpatient pulmonary follow-up. (2) COPD exacerbation As per #1. (3) Upper respiratory infection Start on IV azithromycin, switch to p.o. azithromycin. To complete 4 days. (4) Hypertension SBP [id number]. Switch to lisinopril 10 mg p.o. daily. To follow-up with PCP for adjustment of her meds. Outpatient PCP follow-up She takes propranolol for hypertension which is not first-line and also may be contraindicated due to the fact that patient has COPD and asthma. Note patient has not had a PFT and has not been followed by a trap puller. (5) Depression Started on home meds. Denies any suicidal/homicidal ideation. (6) Hyperlipidemia ASCVD score 7.2%. Restarted home dosage of simvastatin 80 mg p.o. daily. (7) Tobacco abuse Counseled patient and her who is also a smoker on quitting. Started on NicoDerm patch. Physical Exam Vital Signs: Temp Pulse Resp BP Pulse Ox 98.2 F 76 18 141/60 H 93 09/07/18 16:00 09/07/18 15:40 09/07/18 16:00 09/07/18 16:00 09/07/18 16:00 Intake & Output 09/08/18 09/09/18 09/10/18 06:59 06:59 06:59 Intake Total 476 Balance 476 General appearance: PRESENT: no acute distress, well-developed, well-nourished Head exam: PRESENT: atraumatic, normocephalic Eye exam: PRESENT: conjunctiva pink, EOMI, PERRLA. ABSENT: scleral icterus Ear exam: PRESENT: normal external ear exam Mouth exam: PRESENT: moist, tongue midline Neck exam: ABSENT: carotid bruit, JVD, lymphadenopathy, thyromegaly Respiratory exam: PRESENT: clear to auscultation cecilio. ABSENT: rales, rhonchi, wheezes Cardiovascular exam: PRESENT: RRR. ABSENT: diastolic murmur, rubs, systolic murmur Pulses: PRESENT: normal dorsalis pedis pul Vascular exam: PRESENT: normal capillary refill GI/Abdominal exam: PRESENT: normal bowel sounds, soft. ABSENT: distended, guarding, mass, organolmegaly, rebound, tenderness Rectal exam: PRESENT: deferred Extremities exam: PRESENT: full ROM. ABSENT: calf tenderness, clubbing, pedal edema Neurological exam: PRESENT: alert, awake, oriented to person, oriented to place, oriented to time, oriented to situation, CN II-XII grossly intact. ABSENT: motor sensory deficit Psychiatric exam: PRESENT: appropriate affect, normal mood. ABSENT: homicidal ideation, suicidal ideation Skin exam: PRESENT: dry, intact, warm. ABSENT: cyanosis, rash Results Laboratory Results: 09/07/18 03:52 09/07/18 03:52 09/05/18 14:44 NT-Pro-B Natriuret Pep 96 Impressions: Chest X-Ray 09/05/18 14:21 IMPRESSION: NO ACUTE RADIOGRAPHIC FINDING IN THE CHEST. Qualifiers - * PATIENT BEING DISCHARGED WITH ANY OF THE FOLLOWING DIAGNOSIS: No Acute Heart Failure - Is this a Heart Failure Patient?: No LVEF < 40%?: No- if no continue to question #3 - NA 3. Anticoagulant therapy for permanect/persistent/paraoxysmal Afib or Aflutter: N/A
== END 2018-09-07 17:40 | disposition home or self-care (01) ==
LOC: ER 13:57 → EH 17:47 → INTOOBSV 17:47 → 5 19:43
PROVIDERS: ADMIT Internal Medicine; ATTEND Internal Medicine
DX: J96.21 Acute and chronic respiratory failure with hypoxia (principal); J44.1 Chronic obstructive pulmonary disease with (acute) exacerbation; J06.9 Acute upper respiratory infection, unspecified; I10 Essential (primary) hypertension; F32.9 Major depressive disorder, single episode, unspecified; E78.5 Hyperlipidemia, unspecified; E66.9 Obesity, unspecified; F17.210 Nicotine dependence, cigarettes, uncomplicated; Z91.14 Patient's other noncompliance with medication regimen; Z82.49 Family history of ischemic heart disease and other diseases of the circulatory system
CPT/HCPCS: 93005; 94640 ×5; 99285; 36415 ×3; 87040; 84439; 82962 ×2; 83735 ×2; 84443; 85025 ×3; 80048 ×2; 80053; 81001; 84481; 83036; 80061; 83880; 71046; 93010; G0378 ×4; A9270 ×18; J2920 ×3; J1650 ×2; J3475; J1815; J3490; J7512; J7620

== ENCOUNTER 2019-09-10 21:42 | Emergency (ER) | payer MEDICARE ==
--- NOTE | 2019-09-10 22:30 | ER Document Report ---
ED General - General Chief Complaint: Breathing Difficulty Stated Complaint: DIFFICULTY BREATHING Primary Care Provider: KENJI ROSENBAUM FNP-C [Primary Care Provider] - Follow up as needed Notes: Patient is a 69-year-old white female with a history of COPD who was recently admitted for COPD exacerbation who is on 3 L via nasal cannula at home regularly who presents to the emergency department via EMS with a chief complaint of dyspnea and wheezing that began this morning. She states she awoke and was having difficulties all day. She states for the past week she has had some runny nose and sickly feeling. She states today despite her home medications she could not shake the wheeze and noticed that her O2 sats were going down to 83%. She states she was told if it ever got this low to call so she called EMS for transport. She states in route they gave her a few neb treatments and reports shows she was given 125 Solu-Medrol IV. She states that upon arrival here she feels significantly better. She is still on 3 L nasal cannula at 99%. She denies any further abnormalities. States this feels just like her COPD exacerbations. Denies history of DVT or PE. Denies any lower extremity pain or swelling, hemoptysis or changes in baseline cough. No chest pain. No recent travel or known sick contacts. No fevers. No recent surgeries TRAVEL OUTSIDE OF THE [place] IN LAST 30 DAYS: No - Related Data Allergies/Adverse Reactions: Sulfa (Sulfonamide Antibiotics) Allergy (Verified 09/05/18 13:57) Itching Home Medications: has meds Past Medical History - Social History Smoking Status: Former Smoker Frequency of alcohol use: None Drug Abuse: None Family History: Reviewed & Not Pertinent, CVA, Hyperlipidemia, Hypertension Patient has homicidal ideation: No - Past Medical History Cardiac Medical History: Reports: Hx Hypercholesterolemia, Hx Hypertension Denies: Hx Heart Attack Pulmonary Medical History: Reports: Hx Bronchitis, Hx COPD Denies: Hx Asthma, Hx Pneumonia Neurological Medical History: Denies: Hx Seizures Renal/ Medical History: Denies: Hx Peritoneal Dialysis GI Medical History: Reports: Hx Gastroesophageal Reflux Disease Musculoskeletal Medical History: Reports Hx Arthritis, Reports Hx Fibromyalgia - 5 the Psychiatric Medical History: Reports: Hx Anxiety, Hx Depression Past Surgical History: Reports: Hx Hysterectomy, Hx Tonsillectomy - Immunizations Hx Diphtheria, Pertussis, Tetanus Vaccination: Yes Review of Systems - Review of Systems Cardiovascular: Dyspnea Respiratory: Wheezing -: Yes All other systems reviewed and negative Physical Exam - Vital signs Vitals: Temp 98.0 F 09/10/19 21:46 - General General appearance: Appears well, Alert In distress: None - HEENT Head: Normocephalic, Atraumatic Eyes: Normal Conjunctiva: Normal Extraocular movements intact: Yes Pupils: PERRL Ears: Normal External canal: Normal Tympanic membrane: Normal Nasal: Normal Mouth/Lips: Normal Mucous membranes: Normal Pharynx: Normal - Respiratory Respiratory status: No respiratory distress Chest status: Nontender Breath sounds: Wheezing, Other - Mild and expiratory wheezes Chest palpation: Normal - Cardiovascular Rhythm: Regular Heart sounds: Normal auscultation - Extremities General upper extremity: Normal inspection, Nontender, Normal color, Normal ROM, Normal temperature General lower extremity: Normal inspection, Nontender, Normal color, Normal ROM, Normal temperature, Normal weight bearing. No: Telma's sign - Neurological Neuro grossly intact: Yes Cognition: Normal Orientation: AAOx4 - Psychological Associated symptoms: Normal affect, Normal mood - Skin Skin Temperature: Warm Skin Moisture: Dry Skin Color: Normal Course - Re-evaluation Re-evalutation: 09/11/19 04:05 Potassium done infusing. Patient tolerated well. No EKG changes pre-or post on EKG or monitor. She feels well at this time and has no further complaints. She is stable and appropriate for discharge and outpatient follow-up. Counseled her regarding the importance of outpatient follow-up and advised that she return here or any ER immediately with any new, persistent or worsening symptoms. She verbalized understood and agreed. - Vital Signs Vital signs: Temp Pulse Resp BP Pulse Ox 98.0 F 16 163/90 H 95 09/10/19 21:46 09/11/19 01:20 09/11/19 01:20 09/11/19 01:20 - Laboratory Result Diagrams: 09/10/19 21:54 09/10/19 21:54 Laboratory results interpreted by me: 09/10/19 21:54 Potassium 3.0 L* Carbon Dioxide 33 H Est GFR (MDRD) Non-Af 55 L Glucose 195 H Discharge - Discharge Clinical Impression: COPD exacerbation, Hypokalemia Condition: Stable Disposition: HOME, SELF-CARE Instructions: Hypokalemia ([facility]) Additional Instructions: Follow-up with your regular doctor in 2 to 3 days for reevaluation. Return here or any ER immediately with any new, persistent or worsening symptoms. Referrals: KENJI ROSENBAUM, ASSOC[facility]ATE [facility]ACULT[facility] [Primary Care Provider] - Follow up as needed
[2019-09-10 22:45] LABS: ABSOLUTE EOSINOPHILS # (AUTO) 0.4 10^3/uL (0.0-0.6); ABSOLUTE LYMPHOCYTES (AUTO) 3.4 10^3/uL (0.5-4.7); ABSOLUTE MONOCYTES (AUTO) 0.6 10^3/uL (0.1-1.4); ABSOLUTE NEUT (AUTO) 5.7 10^3/uL (1.7-8.2); BASOPHILS % (AUTO) 0.3 % (0-2); EOSINOPHILS % (AUTO) 3.9 % (0-6); HEMOGLOBIN 12.2 g/dL (12.0-15.5); LYMPHOCYTES % (AUTO) 33.4 % (13-45); MEAN CORPUSCULAR HEMOGLOBIN 30.2 pg (27.0-33.4); MEAN CORPUSCULAR HGB CONC 33.8 g/dL (32.0-36.0); MEAN CORPUSCULAR VOLUME 90 fl (80-97); MONOCYTES % (AUTO) 6.1 % (3-13); PLATELET COUNT 204 10^3/uL (150-450); RED BLOOD COUNT 4.02 10^6/uL (3.72-5.28); SEGMENTED NEUTROPHILS % (AUTO) 56.3 % (42-78); TOTAL CELLS COUNTED % (AUTO) 100 %; WHITE BLOOD COUNT 10.2 10^3/uL (4.0-10.5)
[2019-09-10 22:51] LABS: ALBUMIN 4.2 g/dL (3.5-5.0); ALKALINE PHOSPHATASE 93 U/L (38-126); ANION GAP 6 (5-19); ASPARTATE AMINO TRANSFERASE 15 U/L (14-36); BILIRUBIN,TOTAL 0.4 mg/dL (0.2-1.3); BLOOD UREA NITROGEN 16 mg/dL (7-20); CALCIUM 9.2 mg/dL (8.4-10.2); CARBON DIOXIDE 33 mmol/L (22-30); CHLORIDE 101 mmol/L (98-107); GLUCOSE 195 mg/dL (75-110); TOTAL PROTEIN 7.1 g/dL (6.3-8.2)
[2019-09-10] MEDS ORDERED: POTASSIUM CHLORIDE 10 MEQ TABLET.ER PO ONE (23:02)
--- NOTE | 2019-09-10 23:17 | RADIOLOGY REPORT (SQ) ---
XR CHEST 1 VIEW CLINICAL STATEMENT: sob COMPARISON: 09/05/2018 FINDINGS: Cardiomediastinal silhouette is within normal limits. There is no focal lung consolidation or pleural effusion. No evidence of pulmonary edema or pneumothorax. IMPRESSION: No acute cardiopulmonary disease.
[2019-09-10] MEDS: POTASSI CL 20 MEQ/50 ML RIDER 20 MEQ/50 ML RTUPB IV SCH (23:23)
[2019-09-11] MEDS: POTASSI CL 20 MEQ/50 ML RIDER 20 MEQ/50 ML RTUPB IV SCH (01:19)
[2019-09-11 06:28] VITALS: BP 150/79
--- NOTE | 2019-09-11 18:59 | EKG REPORT ---
SEVERITY:- BORDERLINE ECG - SINUS RHYTHM BORDERLINE RIGHT AXIS DEVIATION BORDERLINE T ABNORMALITIES, ANTERIOR LEADS : Confirmed by: June Lopez MD 11-Sep-2019 18:59:00
== END 2019-09-11 06:25 | disposition home or self-care (01) ==
LOC: ER 21:42
DX: J44.1 Chronic obstructive pulmonary disease with (acute) exacerbation (principal); Z99.81 Dependence on supplemental oxygen; E87.6 Hypokalemia; R09.89 Other specified symptoms and signs involving the circulatory and respiratory systems; Z79.899 Other long term (current) drug therapy; Z87.891 Personal history of nicotine dependence; Z88.2 Allergy status to sulfonamides; I10 Essential (primary) hypertension
CPT/HCPCS: 93005; 99285; 96365; 96366; 36415; 85025; 80053; 71045; 93010; J3480 ×2; A9270

== ENCOUNTER → 2019-10-13 | Outpatient (CLI) | payer MEDICARE ==
[2019-10-13 16:29] LABS: ARTERIAL BLOOD BASE EXCESS 2.4 mmol/L; ARTERIAL BLOOD H2CO3 1.46 mmol/L (1.05-1.35); ARTERIAL BLOOD HCO3 28.2 mmol/L (20-24); ARTERIAL BLOOD O2 SATURATION 99.2 % (94-98); ARTERIAL BLOOD PCO2 48.6 mmHg (35-45); ARTERIAL BLOOD PH 7.38 (7.35-7.45); ARTERIAL BLOOD PO2 182.9 mmHg (80-100); ARTERIAL BLOOD TOTAL CO2 29.7 mmol/L (21-25)
[2019-10-13 17:23] LABS: ARTERIAL BLOOD FIO2 3L
== END ==
LOC: OD 15:38
PROVIDERS: ATTEND Internal Medicine Pulmonary Disease
DX: J96.11 Chronic respiratory failure with hypoxia (principal)
CPT/HCPCS: 82803

== ENCOUNTER → 2019-12-17 | Outpatient (CLI) | payer MEDICARE ==
[2019-12-17 15:31] LABS: ARTERIAL BLOOD BASE EXCESS -0.5 mmol/L; ARTERIAL BLOOD H2CO3 1.26 mmol/L (1.05-1.35); ARTERIAL BLOOD HCO3 24.5 mmol/L (20-24); ARTERIAL BLOOD O2 SATURATION 96.5 % (94-98); ARTERIAL BLOOD PCO2 41.8 mmHg (35-45); ARTERIAL BLOOD PH 7.39 (7.35-7.45); ARTERIAL BLOOD PO2 87.3 mmHg (80-100); ARTERIAL BLOOD TOTAL CO2 25.8 mmol/L (21-25)
[2019-12-17 15:32] LABS: ARTERIAL BLOOD FIO2 2L
[2019-12-17 16:03] LABS: APPEARANCE,URINE CLEAR; BILIRUBIN,URINE NEGATIVE (NEGATIVE); COLOR,URINE AMBER; GLUCOSE, URINE NEGATIVE (NEGATIVE); KETONES,URINE NEGATIVE (NEGATIVE); LEUKOCYTE ESTERASE,URINE NEGATIVE (NEGATIVE); NITRITE,URINE POSITIVE (NEGATIVE); PROTEIN,URINE NEGATIVE (NEGATIVE); URINE SPECIFIC GRAVITY 1.017
== END ==
LOC: OD 14:51
PROVIDERS: ATTEND Internal Medicine Pulmonary Disease
DX: J43.2 Centrilobular emphysema (principal); R30.0 Dysuria
CPT/HCPCS: 81001; 82803